=== PATIENT | male | born 1945 | race Hispanic/Latino ===

== ENCOUNTER → 2020-12-17 | Day surgery (SDC) | payer MEDICARE ==
[2020-12-13 09:22] LABS: BASOPHILS % 0.3 % (0.0-1.0); EOSINOPHILS # (AUTO) 0.1 (0.0-0.4); EOSINOPHILS % 2.2 % (0.0-6.0); HEMATOCRIT 36.2 % (38.2-49.6); LYMPHOCYTES # (AUTO) 1.6 (1.0-3.2); LYMPHOCYTES % 26.7 % (18.0-39.1); MEAN CORPUSCULAR HEMOGLOBIN 30.7 pg (28-32); MEAN CORPUSCULAR HGB CONC 33.1 g/dL (31-35); MEAN CORPUSCULAR VOLUME 92.6 fL (81-99); MONOCYTES # (AUTO) 0.5 (0.2-0.8); NEUTROPHILS # (AUTO) 3.7 (2.1-6.9); NEUTROPHILS % 62.6 % (38.7-80.0); PLATELET COUNT 237 x10e3/uL (140-360); RED BLOOD COUNT 3.91 x10e6/uL (4.3-5.7); RED CELL DISTRIBUTION WIDTH 13.2 % (11.7-14.4)
[2020-12-13 09:52] LABS: ALANINE AMINOTRANSFERASE 17 IU/L (0-55); ALBUMIN 3.6 g/dL (3.5-5.0); ALKALINE PHOSPHATASE 100 IU/L (40-150); ANION GAP 11.8 mmol/L (8-16); BLOOD UREA NITROGEN 10 mg/dL (7-26); BUN/CREATININE RATIO 13 (6-25); CARBON DIOXIDE 26 mmol/L (22-29); CHLORIDE 107 mmol/L (98-107); CREATININE, SERUM 0.77 mg/dL (0.72-1.25); EST GLOMERULAR FILTRATION RATE > 60 ML/MIN (60-); GLUCOSE 103 mg/dL (74-118); POTASSIUM 3.8 mmol/L (3.5-5.1); SODIUM 141 mmol/L (136-145)
[~2020-12-17] VITALS: Ht 175.3 cm; Wt 83.9 kg
[~2020-12-17] MED LIST: AMLODIPINE BESYL5 MG PO; ATORVASTATIN CA10 MG PO; ELIQUIS5 MG PO; FENTANYL CITRATE/PF 100MCG/2 ML INJ ONE; FLOMAX0.4 MG PO; HEPARIN SOD/SOD CHLORIDE 2,000 ML ONE; IOPAMIDOL 370 MG/ML 200 ML INFUS..BTL INJ ONE; LEVOFLOXACIN250 MG PO; LIDOCAINE HCL 2% LOCAL 20 ML VIAL ONE; LOSARTAN POTASS25 MG PO; METOPROLOL TART25 MG PO; MIDAZOLAM HCL 2 MG/2 ML VIAL ONE; SODIUM CHLORIDE 0.9% 1000ML 1,000 ML ONE; VERAPAMIL HCL 2.5 MG/ML 2 ML VIAL ONE
[2020-12-17 14:24] VITALS: BP 116/63
[2020-12-17 14:40] VITALS: BP 164/69
[2020-12-17 14:55] VITALS: BP 176/83
[2020-12-17 15:10] VITALS: BP 175/76
[2020-12-17 15:25] VITALS: BP 170/80
== END | disposition home or self-care (01) ==
LOC: CATH LAB 10:07
PROVIDERS: ATTEND Internal Medicine Interventional Cardiology
DX: I25.118 Atherosclerotic heart disease of native coronary artery with other forms of angina pectoris (principal); I10 Essential (primary) hypertension; E78.00 Pure hypercholesterolemia, unspecified; Z83.3 Family history of diabetes mellitus; Z82.49 Family history of ischemic heart disease and other diseases of the circulatory system; Z01.812 Encounter for preprocedural laboratory examination; Z20.822 Contact with and (suspected) exposure to COVID-19
CPT/HCPCS: 36415; 76937; 80053; 85025; 93458; C1769; C1887; J2001; J2250; J3010; J7030; Q9967; U0002; 99152

== ENCOUNTER 2021-01-22 14:50 | Observation (INO) | payer MEDICARE, OTHER ==
[~2021-01-22] VITALS: Ht 175.3 cm; Wt 83.9 kg
[~2021-01-22 14:50] MED LIST changes: -FENTANYL CITRATE/PF 100MCG/2 ML INJ ONE; -HEPARIN SOD/SOD CHLORIDE 2,000 ML ONE; -IOPAMIDOL 370 MG/ML 200 ML INFUS..BTL INJ ONE; -LIDOCAINE HCL 2% LOCAL 20 ML VIAL ONE; -MIDAZOLAM HCL 2 MG/2 ML VIAL ONE; -SODIUM CHLORIDE 0.9% 1000ML 1,000 ML ONE; -VERAPAMIL HCL 2.5 MG/ML 2 ML VIAL ONE
[2021-01-22 15:27] LABS: BASOPHILS % 0.5 % (0.0-1.0); EOSINOPHILS # (AUTO) 0.1 (0.0-0.4); EOSINOPHILS % 0.9 % (0.0-6.0); HEMATOCRIT 36.7 % (38.2-49.6); HEMOGLOBIN 12.5 g/dL (14.0-18.0); LYMPHOCYTES # (AUTO) 1.4 (1.0-3.2); LYMPHOCYTES % 25.6 % (18.0-39.1); MEAN CORPUSCULAR HEMOGLOBIN 31.1 pg (28-32); MEAN CORPUSCULAR HGB CONC 34.1 g/dL (31-35); MEAN CORPUSCULAR VOLUME 91.3 fL (81-99); MONOCYTES # (AUTO) 0.4 (0.2-0.8); NEUTROPHILS # (AUTO) 3.7 (2.1-6.9); NEUTROPHILS % 65.8 % (38.7-80.0); PLATELET COUNT 242 x10e3/uL (140-360); RED BLOOD COUNT 4.02 x10e6/uL (4.3-5.7); RED CELL DISTRIBUTION WIDTH 13.3 % (11.7-14.4)
[2021-01-22] MEDS ORDERED: GLUCAGON FOR INJ 1 MG VIAL IV ONE (15:30)
[2021-01-22 15:33] LABS: INR 1.32; PROTHROMBIN TIME 17.1 seconds (11.9-14.5)
[2021-01-22 15:34] LABS: PARTIAL THROMBOPLASTIN TIME 41.7 seconds (23.8-35.5)
[2021-01-22 15:35] LABS: CLARITY,URINE CLEAR (CLEAR); COLOR,URINE YELLOW (YELLOW); KETONES,URINE NEGATIVE (NEGATIVE); LEUKOCYTE ESTERASE ,URINE NEGATIVE (NEGATIVE); NITRITE,URINE NEGATIVE (NEGATIVE); PROTEIN,URINE DIPSTICK NEGATIVE (NEGATIVE); URINE UROBILINOGEN 2 mg/dL (0.2 - 1)
[2021-01-22 15:36] LABS: BACTERIA,URINE FEW /HPF; EPITHELIAL CELLS,URINE FEW /LPF; RBC,URINE 0-5 /HPF (0-5); WBC,URINE (MAN) 0-5 /HPF (0-5)
[2021-01-22 15:43] LABS: ALANINE AMINOTRANSFERASE 21 IU/L (0-55); ALBUMIN 3.7 g/dL (3.5-5.0); ALBUMIN/GLOBULIN RATIO 1.2 (0.8-2.0); ALKALINE PHOSPHATASE 92 IU/L (40-150); ANION GAP 7.9 mmol/L (8-16); BLOOD UREA NITROGEN 11 mg/dL (7-26); BUN/CREATININE RATIO 14 (6-25); CALCIUM 8.8 mg/dL (8.4-10.2); CARBON DIOXIDE 26 mmol/L (22-29); CHLORIDE 108 mmol/L (98-107); CREATINE KINASE 187 IU/L (30-200); CREATININE, SERUM 0.76 mg/dL (0.72-1.25); EST GLOMERULAR FILTRATION RATE > 60 ML/MIN (60-); GLUCOSE 107 mg/dL (74-118); POTASSIUM 3.9 mmol/L (3.5-5.1); SODIUM 138 mmol/L (136-145)
[2021-01-22] MEDS ORDERED: ONDANSETRON HCL INJ 2MG/ML 2ML 2 MG/ML VIAL IV STA (17:04)
[2021-01-22] MEDS ORDERED: MORPHINE SULFATE INJ 4 MG/ML INJ 1ML IV PRN (17:15)
[2021-01-22] MEDS ORDERED: MORPHINE SULFATE INJ 2 MG/ML SYR IV PRN (17:15)
[2021-01-22] MEDS ORDERED: ONDANSETRON HCL INJ 2MG/ML 2ML 2 MG/ML VIAL IV PRN (17:15)
[2021-01-22] MEDS ORDERED: ASPIRIN 81 MG CHEW TAB PO ONE (17:15)
[2021-01-22] MEDS ORDERED: ONDANSETRON HCL INJ 2MG/ML 2ML 2 MG/ML VIAL ONE (17:15)
[2021-01-22 18:38] VITALS: BP 198/65
[2021-01-22 18:39] VITALS: BP 198/65
[2021-01-22 18:43] VITALS: BP 198/65
[2021-01-22] MEDS ORDERED: ACETAMINOPHEN 325 MG TAB PO PRN (19:30)
[2021-01-22] MEDS ORDERED: MAGNESIUM/ALUMINUM/SIMETHICONE 30 ML UDC PO PRN (19:30)
[2021-01-22 20:00] VITALS: BP 171/61
[2021-01-22] MEDS: HYDRALAZINE HCL 20 MG/ML VIAL IV PRN (20:11)
[2021-01-23] VITALS (7 sets, daily range): BP systolic 90–178; BP diastolic 53–71
[2021-01-23] MEDS: HYDRALAZINE HCL 20 MG/ML VIAL IV PRN (01:11)
[2021-01-23 01:37] LABS: CREATINE KINASE MB 0.9 ng/mL (0-5.0)
[2021-01-23 08:29] LABS: BASOPHILS % 0.3 % (0.0-1.0); EOSINOPHILS # (AUTO) 0.1 (0.0-0.4); EOSINOPHILS % 0.8 % (0.0-6.0); HEMOGLOBIN 12.2 g/dL (14.0-18.0); LYMPHOCYTES # (AUTO) 1.9 (1.0-3.2); LYMPHOCYTES % 26.1 % (18.0-39.1); MEAN CORPUSCULAR HEMOGLOBIN 30.9 pg (28-32); MEAN CORPUSCULAR HGB CONC 33.9 g/dL (31-35); MEAN CORPUSCULAR VOLUME 91.1 fL (81-99); MONOCYTES # (AUTO) 0.6 (0.2-0.8); NEUTROPHILS # (AUTO) 4.6 (2.1-6.9); NEUTROPHILS % 64.5 % (38.7-80.0); PLATELET COUNT 247 x10e3/uL (140-360); RED BLOOD COUNT 3.95 x10e6/uL (4.3-5.7); RED CELL DISTRIBUTION WIDTH 13.2 % (11.7-14.4)
[2021-01-23 08:59] LABS: ALANINE AMINOTRANSFERASE 23 IU/L (0-55); ALBUMIN 3.3 g/dL (3.5-5.0); ALBUMIN/GLOBULIN RATIO 1.1 (0.8-2.0); ALKALINE PHOSPHATASE 112 IU/L (40-150); ANION GAP 9.7 mmol/L (8-16); BLOOD UREA NITROGEN 12 mg/dL (7-26); BUN/CREATININE RATIO 16 (6-25); CALCIUM 8.7 mg/dL (8.4-10.2); CARBON DIOXIDE 26 mmol/L (22-29); CHLORIDE 109 mmol/L (98-107); CREATININE, SERUM 0.73 mg/dL (0.72-1.25); EST GLOMERULAR FILTRATION RATE > 60 ML/MIN (60-); GLUCOSE 86 mg/dL (74-118); POTASSIUM 3.7 mmol/L (3.5-5.1); SODIUM 141 mmol/L (136-145)
[2021-01-23 09:20] LABS: CREATINE KINASE MB 0.9 ng/mL (0-5.0)
[2021-01-23] MEDS: LOSARTAN POTASSIUM 25 MG TAB PO SCH (09:54)
[2021-01-23] MEDS: APIXABAN 5 MG TABLET PO SCH ×2 (09:54→17:35)
[2021-01-23] MEDS: ISOSORBIDE MONONITRATE 30 MG TAB CR PO SCH (09:55)
[2021-01-23] MEDS: ATORVASTATIN 10 MG TAB PO SCH (09:55)
[2021-01-23] MEDS: METOPROLOL TARTRATE 25 MG TAB PO SCH ×2 (09:55→16:10)
[2021-01-23] MEDS: TAMSULOSIN HCL 0.4 MG CAP PO SCH (09:55)
[2021-01-23] MEDS: AMLODIPINE BESYLATE 5 MG TAB PO SCH (09:55)
[2021-01-24] VITALS: BP 125/57
[2021-01-24 04:00] VITALS: BP 119/61
[2021-01-24] MEDS ORDERED: ISOSORBIDE MONO30 MG PO (06:11)
[2021-01-24] MEDS ORDERED: [UNRECOGNIZED DRUG - OTHER] (06:11)
[2021-01-24 08:00] VITALS: BP 120/77
[2021-01-24 08:03] VITALS: BP 120/77
[2021-01-24] MEDS: ISOSORBIDE MONONITRATE 30 MG TAB CR PO SCH ×2 (08:05→09:21)
[2021-01-24] MEDS: APIXABAN 5 MG TABLET PO SCH (09:21)
[2021-01-24] MEDS: METOPROLOL TARTRATE 25 MG TAB PO SCH (09:21)
[2021-01-24] MEDS: ATORVASTATIN 10 MG TAB PO SCH (09:21)
[2021-01-24] MEDS: TAMSULOSIN HCL 0.4 MG CAP PO SCH (09:21)
[2021-01-24] MEDS: AMLODIPINE BESYLATE 5 MG TAB PO SCH (09:21)
[2021-01-24] MEDS: LOSARTAN POTASSIUM 25 MG TAB PO SCH (09:21)
== END 2021-01-24 11:30 | disposition home or self-care (01) ==
LOC: ER 15:15 → ERHOLD 17:10 → IMCU 18:13
PROVIDERS: ADMIT Internal Medicine; ATTEND Internal Medicine
DX: R07.89 Other chest pain (principal); I16.1 Hypertensive emergency; I25.10 Atherosclerotic heart disease of native coronary artery without angina pectoris; I44.0 Atrioventricular block, first degree; E78.5 Hyperlipidemia, unspecified; K21.9 Gastro-esophageal reflux disease without esophagitis; N40.0 Benign prostatic hyperplasia without lower urinary tract symptoms; D64.9 Anemia, unspecified; I85.00 Esophageal varices without bleeding; Z20.822 Contact with and (suspected) exposure to COVID-19
CPT/HCPCS: 36415 ×2; 71045; 80053 ×2; 81001; 82550 ×2; 82553 ×2; 82948; 83880; 84484 ×2; 85025 ×2; 85610; 85730; 93005; 93306; 99284; G0378 ×3; J0360 ×2; J1610; J2405; U0002

== ENCOUNTER 2021-01-24 23:50 | Emergency (ER) | payer MEDICARE, OTHER ==
[~2021-01-24] VITALS: Ht 327.7 cm; Wt 83.9 kg
[~2021-01-24 23:50] MED LIST changes: +ISOSORBIDE MONO30 MG PO; +[UNRECOGNIZED DRUG - OTHER]
[2021-01-25 00:46] LABS: BASOPHILS # (AUTO) 0.1 (0.0-0.1); BASOPHILS % 0.5 % (0.0-1.0); EOSINOPHILS # (AUTO) 0.1 (0.0-0.4); HEMATOCRIT 37.3 % (38.2-49.6); HEMOGLOBIN 12.5 g/dL (14.0-18.0); LYMPHOCYTES # (AUTO) 2.4 (1.0-3.2); LYMPHOCYTES % 24.8 % (18.0-39.1); MEAN CORPUSCULAR HGB CONC 33.5 g/dL (31-35); MEAN CORPUSCULAR VOLUME 92.6 fL (81-99); MONOCYTES # (AUTO) 0.8 (0.2-0.8); MONOCYTES % 8.6 % (4.4-11.3); NEUTROPHILS # (AUTO) 6.2 (2.1-6.9); NEUTROPHILS % 64.9 % (38.7-80.0); PLATELET COUNT 243 x10e3/uL (140-360); RED BLOOD COUNT 4.03 x10e6/uL (4.3-5.7); RED CELL DISTRIBUTION WIDTH 13.4 % (11.7-14.4)
[2021-01-25 01:04] LABS: ALANINE AMINOTRANSFERASE 24 IU/L (0-55); ALBUMIN 3.8 g/dL (3.5-5.0); ALBUMIN/GLOBULIN RATIO 1.2 (0.8-2.0); ALKALINE PHOSPHATASE 112 IU/L (40-150); ANION GAP 12.9 mmol/L (8-16); BLOOD UREA NITROGEN 24 mg/dL (7-26); BUN/CREATININE RATIO 27 (6-25); CALCIUM 8.8 mg/dL (8.4-10.2); CARBON DIOXIDE 22 mmol/L (22-29); CHLORIDE 109 mmol/L (98-107); CREATININE, SERUM 0.88 mg/dL (0.72-1.25); EST GLOMERULAR FILTRATION RATE > 60 ML/MIN (60-); GLUCOSE 106 mg/dL (74-118); POTASSIUM 3.9 mmol/L (3.5-5.1); SODIUM 140 mmol/L (136-145)
[2021-01-25 02:10] VITALS: BP 189/81
== END 2021-01-25 02:12 | disposition home or self-care (01) ==
LOC: ER 01-25 00:04
DX: R06.00 Dyspnea, unspecified (principal); R42 Dizziness and giddiness; I10 Essential (primary) hypertension; E78.5 Hyperlipidemia, unspecified
CPT/HCPCS: 36415; 70450; 71045; 80053; 83880; 84484; 85025; 93005; 99284

== ENCOUNTER 2022-05-11 14:11 | Observation (INO) | payer MEDICARE, OTHER ==
[~2022-05-11] VITALS: Ht 172.7 cm; Wt 83.9 kg
[2022-05-11] MEDS ORDERED: ASPIRIN 81 MG CHEW TAB PO ONE (15:00)
[2022-05-11] MEDS ORDERED: SODIUM CHLORIDE 0.9% 1000ML 1,000 ML IV ONE (15:00)
[2022-05-11 15:07] LABS: BASOPHILS % 0.1 % (0.0-1.0); EOSINOPHILS % 0.2 % (0.0-6.0); HEMATOCRIT 32.5 % (38.2-49.6); HEMOGLOBIN 11.1 g/dL (14.0-18.0); LYMPHOCYTES # (AUTO) 1.4 (1.0-3.2); LYMPHOCYTES % 15.1 % (18.0-39.1); MEAN CORPUSCULAR HEMOGLOBIN 31.1 pg (28-32); MEAN CORPUSCULAR HGB CONC 34.2 g/dL (31-35); MONOCYTES # (AUTO) 0.6 (0.2-0.8); MONOCYTES % 6.9 % (4.4-11.3); NEUTROPHILS # (AUTO) 7.1 (2.1-6.9); NEUTROPHILS % 77.2 % (38.7-80.0); PLATELET COUNT 433 x10e3/uL (140-360); RED BLOOD COUNT 3.57 x10e6/uL (4.3-5.7); RED CELL DISTRIBUTION WIDTH 13.1 % (11.7-14.4)
[2022-05-11 15:20] LABS: INR 1.38; PARTIAL THROMBOPLASTIN TIME 34.2 seconds (23.8-35.5); PROTHROMBIN TIME 18.1 seconds (11.9-14.5)
[2022-05-11 15:27] LABS: ALBUMIN 3.4 g/dL (3.5-5.0); ALBUMIN/GLOBULIN RATIO 0.8 (0.8-2.0); ANION GAP 13.7 mmol/L (8-16); CALCIUM 8.4 mg/dL (8.4-10.2); CREATININE, SERUM 1.14 mg/dL (0.72-1.25)
[2022-05-11 15:29] LABS: POTASSIUM 2.7 mmol/L (3.5-5.1)
[2022-05-11 15:33] LABS: CREATINE KINASE MB 1.4 ng/mL (0-5.0)
[2022-05-11] MEDS ORDERED: POTASSIUM CHLORIDE 20 MEQ TAB CR PO STA (16:51)
[2022-05-11] MEDS ORDERED: KCL 20MEQ/.9 SOD CHL 1,000 ML IV ONE (17:30)
[2022-05-11] MEDS ORDERED: MAGNESIUM SULFATE 2GM/50ML 50 ML IV ONE (17:30)
[2022-05-11] MEDS ORDERED: ONDANSETRON HCL INJ 2MG/ML 2ML 2 MG/ML VIAL IV PRN (17:45)
[2022-05-11] MEDS ORDERED: Morphine 2mg Syringe 2 MG/ML SYR IV PRN (17:45)
[2022-05-11] MEDS ORDERED: NITROGLYCERIN 0.4 MG SUBL SL PRN (17:45)
[2022-05-11] MEDS: FAMOTIDINE 20 MG/2 ML VIAL IV SCH (18:09)
[2022-05-11 19:27] LABS: CREATINE KINASE MB 1.1 ng/mL (0-5.0)
[2022-05-11] MEDS ORDERED: POTASSIUM CHLORIDE 20 MEQ TAB CR PO ONE (21:00)
[2022-05-11 21:27] LABS: CLARITY,URINE CLEAR (CLEAR); COLOR,URINE STRAW (YELLOW); KETONES,URINE NEGATIVE (NEGATIVE); LEUKOCYTE ESTERASE ,URINE NEGATIVE (NEGATIVE); NITRITE,URINE NEGATIVE (NEGATIVE); PROTEIN,URINE DIPSTICK NEGATIVE (NEGATIVE); URINE UROBILINOGEN 1 mg/dL (0.2 - 1)
[2022-05-11 21:37] LABS: AMORPHOUS SEDIMENT,URINE FEW (FEW)
[2022-05-11 22:00] VITALS: BP 162/67
[2022-05-12] VITALS (7 sets, daily range): BP systolic 106–154; BP diastolic 50–70
[2022-05-12] MEDS: FAMOTIDINE 20 MG/2 ML VIAL IV SCH ×2 (05:14→16:44)
[2022-05-12 06:12] LABS: BASOPHILS % 0.2 % (0.0-1.0); EOSINOPHILS % 0.2 % (0.0-6.0); HEMATOCRIT 31.1 % (38.2-49.6); HEMOGLOBIN 10.8 g/dL (14.0-18.0); LYMPHOCYTES # (AUTO) 1.3 (1.0-3.2); LYMPHOCYTES % 16.3 % (18.0-39.1); MEAN CORPUSCULAR HEMOGLOBIN 31.5 pg (28-32); MEAN CORPUSCULAR HGB CONC 34.7 g/dL (31-35); MEAN CORPUSCULAR VOLUME 90.7 fL (81-99); MONOCYTES # (AUTO) 0.8 (0.2-0.8); MONOCYTES % 10.4 % (4.4-11.3); NEUTROPHILS # (AUTO) 5.8 (2.1-6.9); NEUTROPHILS % 72.3 % (38.7-80.0); PLATELET COUNT 349 x10e3/uL (140-360); RED BLOOD COUNT 3.43 x10e6/uL (4.3-5.7); RED CELL DISTRIBUTION WIDTH 13.2 % (11.7-14.4)
[2022-05-12 07:01] LABS: ALBUMIN/GLOBULIN RATIO 0.8 (0.8-2.0); ANION GAP 11.4 mmol/L (8-16); CHOL/HDL RATIO 3.8 (3.9-4.7); CREATININE, SERUM 0.86 mg/dL (0.72-1.25); POTASSIUM 3.4 mmol/L (3.5-5.1)
[2022-05-12] MEDS: LOSARTAN POTASSIUM 25 MG TAB PO SCH (08:40)
[2022-05-12] MEDS: APIXABAN 5 MG TABLET PO SCH ×2 (08:40→16:39)
[2022-05-12] MEDS: TAMSULOSIN HCL 0.4 MG CAP PO SCH (08:40)
[2022-05-12] MEDS: ISOSORBIDE MONONITRATE 30 MG TAB CR PO SCH (08:41)
[2022-05-12] MEDS: ATORVASTATIN 10 MG TAB PO SCH (08:41)
[2022-05-12] MEDS: AMLODIPINE BESYLATE 5 MG TAB PO SCH (08:42)
[2022-05-12] MEDS: METOPROLOL TARTRATE 25 MG TAB PO SCH ×2 (08:42→16:39)
[2022-05-12] MEDS: ASPIRIN 81 MG ENTERIC COATED PO SCH (08:43)
[2022-05-12] MEDS ORDERED: ACETAMINOPHEN 325 MG TAB PO PRN (20:15)
[2022-05-13] VITALS: BP 108/59
[2022-05-13 04:00] VITALS: BP 165/65
[2022-05-13] MEDS: FAMOTIDINE 20 MG/2 ML VIAL IV SCH (05:42)
[2022-05-13 08:03] VITALS: BP 142/82
[2022-05-13 09:01] VITALS: BP 142/82
[2022-05-13] MEDS: ASPIRIN 81 MG ENTERIC COATED PO SCH (09:13)
[2022-05-13] MEDS: ISOSORBIDE MONONITRATE 30 MG TAB CR PO SCH (09:14)
[2022-05-13] MEDS: APIXABAN 5 MG TABLET PO SCH (09:14)
[2022-05-13] MEDS: LOSARTAN POTASSIUM 25 MG TAB PO SCH (09:14)
[2022-05-13] MEDS: ATORVASTATIN 10 MG TAB PO SCH (09:14)
[2022-05-13] MEDS: TAMSULOSIN HCL 0.4 MG CAP PO SCH (09:14)
[2022-05-13] MEDS: AMLODIPINE BESYLATE 5 MG TAB PO SCH (09:15)
[2022-05-13] MEDS: METOPROLOL TARTRATE 25 MG TAB PO SCH (09:15)
[2022-05-13 11:43] VITALS: BP 138/69
[2022-05-13] MEDS ORDERED: ASPIRIN EC81 MG PO (12:47)
== END 2022-05-13 13:09 | disposition home or self-care (01) ==
LOC: ER 14:40 → INTOOBSV 17:42 → ERHOLD 17:42 → MED/SURG3 21:26
PROVIDERS: ADMIT Internal Medicine; ATTEND Internal Medicine
DX: R07.9 Chest pain, unspecified (principal); I25.10 Atherosclerotic heart disease of native coronary artery without angina pectoris; I10 Essential (primary) hypertension; E78.5 Hyperlipidemia, unspecified; I49.3 Ventricular premature depolarization; I48.0 Paroxysmal atrial fibrillation; I44.1 Atrioventricular block, second degree; Z79.82 Long term (current) use of aspirin; Z90.49 Acquired absence of other specified parts of digestive tract; Z20.822 Contact with and (suspected) exposure to COVID-19; D64.9 Anemia, unspecified; E87.6 Hypokalemia; K21.9 Gastro-esophageal reflux disease without esophagitis
CPT/HCPCS: 0223U; 36415 ×2; 70450; 71045; 80053 ×2; 80061; 81001; 82550 ×2; 82553 ×2; 83735; 83880; 84484 ×2; 85025 ×2; 85610; 85730; 93005; 93306; 94799 ×2; 99284; G0378 ×3; J3475; J7030

== ENCOUNTER 2022-06-21 11:01 | Emergency (ER) | payer MEDICARE, OTHER ==
[~2022-06-21] VITALS: Ht 172.7 cm; Wt 83.9 kg
[~2022-06-21 11:01] MED LIST changes: +ASPIRIN EC81 MG PO
[2022-06-21] MEDS ORDERED: SODIUM CHLORIDE 0.9% 1000ML 1,000 ML IV ONE (11:45)
[2022-06-21 12:37] LABS: BASOPHILS % 0.1 % (0.0-1.0); HEMATOCRIT 25.4 % (38.2-49.6); HEMOGLOBIN 8.5 g/dL (14.0-18.0); LYMPHOCYTES # (AUTO) 1.1 (1.0-3.2); LYMPHOCYTES % 13.4 % (18.0-39.1); MEAN CORPUSCULAR HEMOGLOBIN 30.7 pg (28-32); MEAN CORPUSCULAR HGB CONC 33.5 g/dL (31-35); MEAN CORPUSCULAR VOLUME 91.7 fL (81-99); MONOCYTES # (AUTO) 0.8 (0.2-0.8); MONOCYTES % 9.9 % (4.4-11.3); NEUTROPHILS # (AUTO) 6.4 (2.1-6.9); NEUTROPHILS % 76.1 % (38.7-80.0); PLATELET COUNT 292 x10e3/uL (140-360); RED BLOOD COUNT 2.77 x10e6/uL (4.3-5.7); RED CELL DISTRIBUTION WIDTH 14.4 % (11.7-14.4)
[2022-06-21 12:38] LABS: CLARITY,URINE CLEAR (CLEAR); COLOR,URINE YELLOW (YELLOW); KETONES,URINE NEGATIVE (NEGATIVE); LEUKOCYTE ESTERASE ,URINE NEGATIVE (NEGATIVE); NITRITE,URINE NEGATIVE (NEGATIVE); PROTEIN,URINE DIPSTICK NEGATIVE (NEGATIVE); URINE UROBILINOGEN 1 mg/dL (0.2 - 1)
[2022-06-21 12:55] LABS: ALBUMIN 3.2 g/dL (3.5-5.0); ALBUMIN/GLOBULIN RATIO 0.9 (0.8-2.0); ANION GAP 15.4 mmol/L (8-16); BACTERIA,URINE RARE /HPF; CALCIUM 8.6 mg/dL (8.4-10.2); CREATININE, SERUM 0.81 mg/dL (0.72-1.25); POTASSIUM 3.4 mmol/L (3.5-5.1); WBC,URINE (MAN) 0-5 /HPF (0-5)
[2022-06-21] MEDS ORDERED: FLOMAX0.4 MG PO (15:06)
== END 2022-06-21 16:15 | disposition home or self-care (01) ==
LOC: ER 11:39
DX: R33.9 Retention of urine, unspecified (principal); N40.1 Benign prostatic hyperplasia with lower urinary tract symptoms; I10 Essential (primary) hypertension; E78.5 Hyperlipidemia, unspecified
CPT/HCPCS: 36415; 51702; 80053; 81001; 85025; 99284; J7030; 51700

== ENCOUNTER 2022-08-05 18:02 | Inpatient (IN) | payer MEDICARE, OTHER ==
[~2022-08-05] VITALS: Ht 152.4 cm; Wt 74.4 kg
[2022-08-05 18:45] LABS: BASOPHILS % 0.2 % (0.0-1.0); HEMATOCRIT 31.7 % (38.2-49.6); LYMPHOCYTES # (AUTO) 1.2 (1.0-3.2); MEAN CORPUSCULAR HEMOGLOBIN 27.8 pg (28-32); MEAN CORPUSCULAR HGB CONC 31.5 g/dL (31-35); MEAN CORPUSCULAR VOLUME 88.1 fL (81-99); MONOCYTES # (AUTO) 0.5 (0.2-0.8); MONOCYTES % 4.1 % (4.4-11.3); NEUTROPHILS # (AUTO) 11.1 (2.1-6.9); NEUTROPHILS % 85.5 % (38.7-80.0); PLATELET COUNT 455 x10e3/uL (140-360); RED CELL DISTRIBUTION WIDTH 16.3 % (11.7-14.4)
[2022-08-05 18:51] LABS: INR 1.22; PROTHROMBIN TIME 16.5 seconds (11.9-14.5)
[2022-08-05 18:52] LABS: PARTIAL THROMBOPLASTIN TIME 35.7 seconds (23.8-35.5)
[2022-08-05 19:00] LABS: ALANINE AMINOTRANSFERASE 68 IU/L (0-55); ALBUMIN 2.8 g/dL (3.5-5.0); ALBUMIN/GLOBULIN RATIO 0.6 (0.8-2.0); ALKALINE PHOSPHATASE 106 IU/L (40-150); ANION GAP 20.1 mmol/L (8-16); BLOOD UREA NITROGEN 44 mg/dL (7-26); BUN/CREATININE RATIO 35 (6-25); CALCIUM 9.1 mg/dL (8.4-10.2); CARBON DIOXIDE 18 mmol/L (22-29); CHLORIDE 98 mmol/L (98-107); CREATININE, SERUM 1.26 mg/dL (0.72-1.25); GLUCOSE 113 mg/dL (74-118); POTASSIUM 3.1 mmol/L (3.5-5.1); SODIUM 133 mmol/L (136-145)
[2022-08-05] MEDS ORDERED: SODIUM CHLORIDE 0.9% 1000ML 1,000 ML IV ONE (19:00)
[2022-08-05 19:38] LABS: CLARITY,URINE SL CLOUDY (CLEAR); COLOR,URINE STRAW (YELLOW); KETONES,URINE NEGATIVE (NEGATIVE); LEUKOCYTE ESTERASE ,URINE LARGE (NEGATIVE); NITRITE,URINE NEGATIVE (NEGATIVE); PROTEIN,URINE DIPSTICK TRACE (NEGATIVE); URINE UROBILINOGEN 0.2 mg/dL (0.2 - 1)
[2022-08-05 19:55] LABS: AMORPHOUS SEDIMENT,URINE MODERATE (FEW); BACTERIA,URINE MODERATE /HPF; WBC,URINE (MAN) 21-50 /HPF (0-5)
[2022-08-05] MEDS ORDERED: ONDANSETRON HCL INJ 2MG/ML 2ML 2 MG/ML VIAL IV PRN (20:15)
[2022-08-05] MEDS ORDERED: SODIUM CHLORIDE FLUSH 10 ML SYR INJ PRN (20:15)
[2022-08-05 20:30] VITALS: BP 118/71
[2022-08-05 23:00] VITALS: BP 118/71
[2022-08-06] VITALS (9 sets, daily range): BP systolic 132–158; BP diastolic 54–86
[2022-08-06] MEDS ORDERED: HYDRALAZINE HCL 20 MG/ML VIAL IV PRN (00:15)
[2022-08-06] MEDS: SODIUM CHLORIDE 0.9% 1000ML 1,000 ML IV SCH ×2 (01:35→13:48)
[2022-08-06 06:18] LABS: BASOPHILS % 0.2 % (0.0-1.0); EOSINOPHILS % 0.3 % (0.0-6.0); HEMATOCRIT 22.3 % (38.2-49.6); HEMOGLOBIN 7.6 g/dL (14.0-18.0); LYMPHOCYTES # (AUTO) 1.2 (1.0-3.2); LYMPHOCYTES % 11.8 % (18.0-39.1); MEAN CORPUSCULAR HEMOGLOBIN 28.4 pg (28-32); MEAN CORPUSCULAR HGB CONC 34.1 g/dL (31-35); MEAN CORPUSCULAR VOLUME 83.2 fL (81-99); MONOCYTES # (AUTO) 0.7 (0.2-0.8); MONOCYTES % 6.5 % (4.4-11.3); NEUTROPHILS # (AUTO) 8.3 (2.1-6.9); NEUTROPHILS % 79.9 % (38.7-80.0); PLATELET COUNT 450 x10e3/uL (140-360); RED BLOOD COUNT 2.68 x10e6/uL (4.3-5.7); RED CELL DISTRIBUTION WIDTH 16.3 % (11.7-14.4)
[2022-08-06 06:54] LABS: ANION GAP 14.6 mmol/L (8-16); CREATININE, SERUM 1.39 mg/dL (0.72-1.25)
[2022-08-06 06:58] LABS: POTASSIUM 2.6 mmol/L (3.5-5.1)
[2022-08-06] MEDS ORDERED: POTASSIUM CHLORIDE 20 MEQ TAB CR PO STA (07:04)
[2022-08-06] MEDS ORDERED: POTASSIUM CHLORIDE 20 MEQ TAB CR PO SCH (09:00)
[2022-08-06] MEDS: METOPROLOL TARTRATE 25 MG TAB PO SCH ×2 (09:19→17:07)
[2022-08-06] MEDS: APIXABAN 5 MG TABLET PO SCH ×2 (09:19→16:59)
[2022-08-06] MEDS ORDERED: ONDANSETRON HCL 4 MG ORAL DISINTEGRATING TAB PO PRN ×2 (11:45)
[2022-08-06] MEDS: TAMSULOSIN HCL 0.4 MG CAP PO SCH (20:24)
[2022-08-07] VITALS (8 sets, daily range): BP systolic 128–176; BP diastolic 49–85
[2022-08-07] MEDS: SODIUM CHLORIDE 0.9% 1000ML 1,000 ML IV SCH ×2 (03:33→16:46)
[2022-08-07] MEDS: METOPROLOL TARTRATE 25 MG TAB PO SCH (08:16)
[2022-08-07] MEDS: APIXABAN 5 MG TABLET PO SCH (08:16)
[2022-08-07 10:03] LABS: BASOPHILS % 0.2 % (0.0-1.0); EOSINOPHILS % 0.4 % (0.0-6.0); HEMATOCRIT 23.2 % (38.2-49.6); HEMOGLOBIN 7.3 g/dL (14.0-18.0); MEAN CORPUSCULAR HEMOGLOBIN 27.8 pg (28-32); MEAN CORPUSCULAR HGB CONC 31.5 g/dL (31-35); MEAN CORPUSCULAR VOLUME 88.2 fL (81-99); MONOCYTES # (AUTO) 0.4 (0.2-0.8); MONOCYTES % 4.2 % (4.4-11.3); NEUTROPHILS # (AUTO) 7.4 (2.1-6.9); NEUTROPHILS % 83.4 % (38.7-80.0); PLATELET COUNT 415 x10e3/uL (140-360); RED BLOOD COUNT 2.63 x10e6/uL (4.3-5.7); RED CELL DISTRIBUTION WIDTH 16.7 % (11.7-14.4)
[2022-08-07 10:08] LABS: ANION GAP 11.3 mmol/L (8-16); CALCIUM 7.8 mg/dL (8.4-10.2); CREATININE, SERUM 1.5 mg/dL (0.72-1.25); POTASSIUM 3.3 mmol/L (3.5-5.1)
[2022-08-07] MEDS ORDERED: POTASSIUM CHLORIDE 20 MEQ TAB CR PO STA (10:26)
[2022-08-07] MEDS: PANTOPRAZOLE SOD 40 MG TABEC PO SCH (12:07)
[2022-08-07] MEDS: AMLODIPINE BESYLATE 5 MG TAB PO SCH (12:07)
[2022-08-07] MEDS: DOCUSATE SODIUM LIQD 100 MG/10 ML UDC NG SCH (16:45)
[2022-08-07] MEDS: TAMSULOSIN HCL 0.4 MG CAP PO SCH (21:37)
[2022-08-08] VITALS (8 sets, daily range): BP systolic 137–180; BP diastolic 65–91
[2022-08-08] MEDS: SODIUM CHLORIDE 0.9% 1000ML 1,000 ML IV SCH ×2 (06:23→17:58)
[2022-08-08 06:35] LABS: BASOPHILS % 0.2 % (0.0-1.0); EOSINOPHILS # (AUTO) 0.1 (0.0-0.4); EOSINOPHILS % 0.5 % (0.0-6.0); HEMATOCRIT 22.5 % (38.2-49.6); HEMOGLOBIN 7.3 g/dL (14.0-18.0); MEAN CORPUSCULAR HEMOGLOBIN 28.4 pg (28-32); MEAN CORPUSCULAR HGB CONC 32.4 g/dL (31-35); MEAN CORPUSCULAR VOLUME 87.5 fL (81-99); MONOCYTES # (AUTO) 0.4 (0.2-0.8); MONOCYTES % 3.9 % (4.4-11.3); NEUTROPHILS # (AUTO) 8.9 (2.1-6.9); NEUTROPHILS % 84.6 % (38.7-80.0); PLATELET COUNT 470 x10e3/uL (140-360); RED BLOOD COUNT 2.57 x10e6/uL (4.3-5.7); RED CELL DISTRIBUTION WIDTH 16.8 % (11.7-14.4)
[2022-08-08 07:08] LABS: ANION GAP 12.4 mmol/L (8-16); CALCIUM 8.1 mg/dL (8.4-10.2); CREATININE, SERUM 1.1 mg/dL (0.72-1.25); POTASSIUM 3.4 mmol/L (3.5-5.1)
[2022-08-08] MEDS ORDERED: TAMSULOSIN HCL 0.4 MG CAP PO SCH (09:00)
[2022-08-08] MEDS: DOCUSATE SODIUM LIQD 100 MG/10 ML UDC NG SCH ×3 (09:33→16:55)
[2022-08-08] MEDS: PANTOPRAZOLE SOD 40 MG TABEC PO SCH (09:33)
[2022-08-08] MEDS: AMLODIPINE BESYLATE 5 MG TAB PO SCH (09:34)
[2022-08-08] MEDS: ISOSORBIDE MONONITRATE 30 MG TAB CR PO SCH (09:34)
[2022-08-08] MEDS: ASPIRIN 81 MG ENTERIC COATED PO SCH (09:34)
[2022-08-08] MEDS: ATORVASTATIN 10 MG TAB PO SCH (09:34)
[2022-08-08] MEDS ORDERED: POTASSIUM CHLORIDE 20MEQ/100ML 100 ML IV ONE (13:00)
[2022-08-08 15:01] LABS: CREATININE,URINE RANDOM 35.33 mg/dL (63-166); SODIUM,URINE 73 mmol/L; TOTAL PROTEIN, URINE < 6.8 mg/dL (1-14)
[2022-08-08] MEDS: SODIUM BICARBONATE 650 MG TAB PO SCH (16:47)
[2022-08-08] MEDS ORDERED: APIXABAN 5 MG TABLET PO SCH (17:00)
[2022-08-08] MEDS: TAMSULOSIN HCL 0.4 MG CAP PO SCH (20:59)
[2022-08-09] VITALS (8 sets, daily range): BP systolic 149–182; BP diastolic 62–81
[2022-08-09 06:22] LABS: BASOPHILS % 0.2 % (0.0-1.0); EOSINOPHILS # (AUTO) 0.1 (0.0-0.4); EOSINOPHILS % 1.2 % (0.0-6.0); HEMATOCRIT 21.6 % (38.2-49.6); HEMOGLOBIN 7.1 g/dL (14.0-18.0); LYMPHOCYTES # (AUTO) 1.1 (1.0-3.2); LYMPHOCYTES % 18.6 % (18.0-39.1); MEAN CORPUSCULAR HEMOGLOBIN 28.1 pg (28-32); MEAN CORPUSCULAR HGB CONC 32.9 g/dL (31-35); MEAN CORPUSCULAR VOLUME 85.4 fL (81-99); MONOCYTES # (AUTO) 0.3 (0.2-0.8); MONOCYTES % 5.6 % (4.4-11.3); NEUTROPHILS # (AUTO) 4.4 (2.1-6.9); NEUTROPHILS % 73.4 % (38.7-80.0); PLATELET COUNT 400 x10e3/uL (140-360); RED BLOOD COUNT 2.53 x10e6/uL (4.3-5.7); RED CELL DISTRIBUTION WIDTH 16.8 % (11.7-14.4)
[2022-08-09 07:22] LABS: ANION GAP 12.3 mmol/L (8-16); CREATININE, SERUM 0.85 mg/dL (0.72-1.25); POTASSIUM 3.3 mmol/L (3.5-5.1)
[2022-08-09] MEDS: SODIUM CHLORIDE 0.9% 1000ML 1,000 ML IV SCH ×2 (08:15→20:13)
[2022-08-09] MEDS: DOCUSATE SODIUM LIQD 100 MG/10 ML UDC NG SCH ×2 (08:22→16:18)
[2022-08-09] MEDS: ASPIRIN 81 MG ENTERIC COATED PO SCH (08:23)
[2022-08-09] MEDS: SODIUM BICARBONATE 650 MG TAB PO SCH ×2 (08:23→16:17)
[2022-08-09] MEDS: ATORVASTATIN 10 MG TAB PO SCH (08:23)
[2022-08-09] MEDS: PANTOPRAZOLE SOD 40 MG TABEC PO SCH (08:23)
[2022-08-09] MEDS: ISOSORBIDE MONONITRATE 30 MG TAB CR PO SCH (08:33)
[2022-08-09] MEDS: AMLODIPINE BESYLATE 5 MG TAB PO SCH (08:33)
[2022-08-09] MEDS ORDERED: MAGNESIUM SULFATE 2GM/50ML 50 ML IV ONE (12:30)
[2022-08-09] MEDS ORDERED: POTASSIUM CHLORIDE 10MEQ EA PO NR (12:30)
[2022-08-09] MEDS: TAMSULOSIN HCL 0.4 MG CAP PO SCH (20:13)
[2022-08-10] VITALS (7 sets, daily range): BP systolic 114–175; BP diastolic 59–79
[2022-08-10 06:08] LABS: BASOPHILS % 0.7 % (0.0-1.0); EOSINOPHILS # (AUTO) 0.1 (0.0-0.4); EOSINOPHILS % 1.1 % (0.0-6.0); HEMATOCRIT 26.8 % (38.2-49.6); HEMOGLOBIN 8.3 g/dL (14.0-18.0); LYMPHOCYTES % 18.2 % (18.0-39.1); MEAN CORPUSCULAR HEMOGLOBIN 28.3 pg (28-32); MEAN CORPUSCULAR VOLUME 91.5 fL (81-99); MONOCYTES # (AUTO) 0.3 (0.2-0.8); MONOCYTES % 5.3 % (4.4-11.3); NEUTROPHILS # (AUTO) 4.2 (2.1-6.9); NEUTROPHILS % 74.2 % (38.7-80.0); PLATELET COUNT 418 x10e3/uL (140-360); RED BLOOD COUNT 2.93 x10e6/uL (4.3-5.7); RED CELL DISTRIBUTION WIDTH 17.3 % (11.7-14.4)
[2022-08-10 06:32] LABS: ANION GAP 14.1 mmol/L (8-16); CALCIUM 8.2 mg/dL (8.4-10.2); CREATININE, SERUM 0.73 mg/dL (0.72-1.25); POTASSIUM 3.1 mmol/L (3.5-5.1)
[2022-08-10 07:00] LABS: % IRON SATURATION 19 % (15-50); IRON 37 ug/dL (65-175); TOTAL IRON BINDING CAPACITY 200 ug/dL (261-478); TRANSFERRIN 143 mg/dL (174-364)
[2022-08-10] MEDS ORDERED: POTASSIUM CHLORIDE 10MEQ EA PO STA (07:27)
[2022-08-10] MEDS ORDERED: MAGNESIUM SULFATE 2GM/50ML 50 ML IV ONE ×2 (07:30→15:00)
[2022-08-10] MEDS: DOCUSATE SODIUM LIQD 100 MG/10 ML UDC NG SCH (08:53)
[2022-08-10] MEDS: ISOSORBIDE MONONITRATE 30 MG TAB CR PO SCH (08:54)
[2022-08-10] MEDS: AMLODIPINE BESYLATE 5 MG TAB PO SCH (08:54)
[2022-08-10] MEDS: PANTOPRAZOLE SOD 40 MG TABEC PO SCH (08:54)
[2022-08-10] MEDS: SODIUM BICARBONATE 650 MG TAB PO SCH ×2 (08:54→15:35)
[2022-08-10] MEDS: ASPIRIN 81 MG ENTERIC COATED PO SCH (08:54)
[2022-08-10] MEDS: ATORVASTATIN 10 MG TAB PO SCH (08:55)
[2022-08-10] MEDS: SODIUM CHLORIDE 0.9% 1000ML 1,000 ML IV SCH (10:55)
[2022-08-10 12:56] LABS: ANION GAP 14.5 mmol/L (8-16); CALCIUM 8.2 mg/dL (8.4-10.2); CREATININE, SERUM 0.76 mg/dL (0.72-1.25); MAGNESIUM 1.6 MG/DL (1.3-2.1); POTASSIUM 3.5 mmol/L (3.5-5.1)
[2022-08-10] MEDS ORDERED: POTASSIUM CHLORIDE 20 MEQ TAB CR PO ONE (15:00)
[2022-08-10] MEDS: DOCUSATE SODIUM 100 MG CAP PO SCH (15:35)
[2022-08-10] MEDS: TAMSULOSIN HCL 0.4 MG CAP PO SCH (21:27)
[2022-08-11] VITALS (7 sets, daily range): BP systolic 132–191; BP diastolic 52–90
[2022-08-11] MEDS: SODIUM CHLORIDE 0.9% 1000ML 1,000 ML IV SCH ×2 (00:15→13:15)
[2022-08-11 06:28] LABS: BASOPHILS % 0.4 % (0.0-1.0); EOSINOPHILS # (AUTO) 0.1 (0.0-0.4); EOSINOPHILS % 1.2 % (0.0-6.0); HEMOGLOBIN 7.5 g/dL (14.0-18.0); LYMPHOCYTES # (AUTO) 1.2 (1.0-3.2); LYMPHOCYTES % 21.3 % (18.0-39.1); MEAN CORPUSCULAR HEMOGLOBIN 29.8 pg (28-32); MEAN CORPUSCULAR HGB CONC 34.1 g/dL (31-35); MEAN CORPUSCULAR VOLUME 87.3 fL (81-99); MONOCYTES # (AUTO) 0.4 (0.2-0.8); MONOCYTES % 6.9 % (4.4-11.3); NEUTROPHILS % 69.7 % (38.7-80.0); PLATELET COUNT 456 x10e3/uL (140-360); RED BLOOD COUNT 2.52 x10e6/uL (4.3-5.7); RED CELL DISTRIBUTION WIDTH 17.7 % (11.7-14.4)
[2022-08-11 06:40] LABS: MAGNESIUM 1.6 MG/DL (1.3-2.1); PHOSPHORUS 2.5 MG/DL (2.3-4.7)
[2022-08-11 07:08] LABS: ANION GAP 12.6 mmol/L (8-16); CALCIUM 8.3 mg/dL (8.4-10.2); CREATININE, SERUM 0.66 mg/dL (0.72-1.25); POTASSIUM 3.6 mmol/L (3.5-5.1)
[2022-08-11] MEDS: AMLODIPINE BESYLATE 5 MG TAB PO SCH (08:19)
[2022-08-11] MEDS: PANTOPRAZOLE SOD 40 MG TABEC PO SCH (08:20)
[2022-08-11] MEDS: ASPIRIN 81 MG ENTERIC COATED PO SCH (08:20)
[2022-08-11] MEDS: ISOSORBIDE MONONITRATE 30 MG TAB CR PO SCH (08:20)
[2022-08-11] MEDS: DOCUSATE SODIUM 100 MG CAP PO SCH ×2 (08:20→17:44)
[2022-08-11] MEDS: ATORVASTATIN 10 MG TAB PO SCH (08:21)
[2022-08-11] MEDS: SODIUM BICARBONATE 650 MG TAB PO SCH ×2 (08:21→17:44)
[2022-08-11] MEDS ORDERED: SODIUM CHLORIDE 0.9% 250ML 250 ML IV ONE (14:00)
[2022-08-11] MEDS: LACTULOSE SYRUP 20 GM/30 ML UDC PO SCH (17:44)
[2022-08-11] MEDS ORDERED: MAGNESIUM SULFATE 2GM/50ML 50 ML IV ONE (20:00)
[2022-08-11] MEDS: TAMSULOSIN HCL 0.4 MG CAP PO SCH (20:25)
[2022-08-11] MEDS ORDERED: BISACODYL 10 MG SUPP PR ONE ×2 (23:15→23:30)
[2022-08-12] VITALS (8 sets, daily range): BP systolic 103–162; BP diastolic 40–78
[2022-08-12] MEDS ORDERED: BISACODYL 10 MG SUPP PR ONE ×2 (00:10→23:30)
[2022-08-12] MEDS ORDERED: MINERAL OIL 132 ML BTL PR ONE (00:45)
[2022-08-12] MEDS: SODIUM CHLORIDE 0.9% 1000ML 1,000 ML IV SCH ×2 (02:00→12:55)
[2022-08-12 06:14] LABS: HEMATOCRIT 26.2 % (38.2-49.6); HEMOGLOBIN 8.7 g/dL (14.0-18.0); MEAN CORPUSCULAR HEMOGLOBIN 28.6 pg (28-32); MEAN CORPUSCULAR HGB CONC 33.2 g/dL (31-35); MEAN CORPUSCULAR VOLUME 86.2 fL (81-99); PLATELET COUNT 322 x10e3/uL (140-360); RED BLOOD COUNT 3.04 x10e6/uL (4.3-5.7); RED CELL DISTRIBUTION WIDTH 17.9 % (11.7-14.4)
[2022-08-12 06:37] LABS: MAGNESIUM 1.7 MG/DL (1.3-2.1); POTASSIUM 3.3 mmol/L (3.5-5.1)
[2022-08-12 07:39] LABS: LYMPHOCYTES % (MANUAL) 14 % (19-48); MONOCYTES % (MANUAL) 1 % (3.4-9.0); NEUTROPHILS % (MANUAL) 85 % (40-74)
[2022-08-12 07:40] LABS: ANISOCYTOSIS SLIGHT; PLATELET ESTIMATE ADEQUATE; PLATELET MORPHOLOGY COMMENT NORMAL; RBC MORPHOLOGY COMMENT NORMAL
[2022-08-12] MEDS: DOCUSATE SODIUM 100 MG CAP PO SCH ×2 (08:47→16:32)
[2022-08-12] MEDS: ASPIRIN 81 MG ENTERIC COATED PO SCH (08:47)
[2022-08-12] MEDS: ATORVASTATIN 10 MG TAB PO SCH (08:48)
[2022-08-12] MEDS: SODIUM BICARBONATE 650 MG TAB PO SCH ×2 (08:48→16:31)
[2022-08-12] MEDS: PANTOPRAZOLE SOD 40 MG TABEC PO SCH (08:48)
[2022-08-12] MEDS: LACTULOSE SYRUP 20 GM/30 ML UDC PO SCH ×2 (08:50→16:32)
[2022-08-12] MEDS: AMLODIPINE BESYLATE 5 MG TAB PO SCH (08:53)
[2022-08-12] MEDS: ISOSORBIDE MONONITRATE 30 MG TAB CR PO SCH (08:53)
[2022-08-12] MEDS: LOSARTAN POTASSIUM 25 MG TAB PO SCH (08:54)
[2022-08-12] MEDS: IRON SUCROSE 100 MG in SODIUM CHLORIDE 0.9% 100 ML IV SCH (10:38)
[2022-08-12] MEDS ORDERED: POTASSIUM CHLORIDE 10MEQ EA PO ONE ×2 (15:00→16:45)
[2022-08-12] MEDS ORDERED: MAGNESIUM SULFATE 2GM/50ML 50 ML IV ONE (15:00)
[2022-08-12] MEDS ORDERED: POTASSIUM CHLORIDE 20MEQ/100ML 100 ML IV ONE (17:30)
[2022-08-12] MEDS: TAMSULOSIN HCL 0.4 MG CAP PO SCH (21:20)
[2022-08-12] MEDS ORDERED: PEG (High)/E-LYTE SOLN 4,000 ML BTL PO ONE (23:30)
[2022-08-13] VITALS (10 sets, daily range): BP systolic 103–175; BP diastolic 56–86
[2022-08-13] MEDS ORDERED: BISACODYL 10 MG SUPP PR ONE ×2 (00:30)
[2022-08-13 05:00] LABS: BASOPHILS % 0.3 % (0.0-1.0); EOSINOPHILS # (AUTO) 0.1 (0.0-0.4); HEMATOCRIT 27.9 % (38.2-49.6); HEMOGLOBIN 8.4 g/dL (14.0-18.0); LYMPHOCYTES # (AUTO) 1.2 (1.0-3.2); MEAN CORPUSCULAR HEMOGLOBIN 27.3 pg (28-32); MEAN CORPUSCULAR HGB CONC 30.1 g/dL (31-35); MEAN CORPUSCULAR VOLUME 90.6 fL (81-99); MONOCYTES # (AUTO) 0.4 (0.2-0.8); MONOCYTES % 5.8 % (4.4-11.3); NEUTROPHILS # (AUTO) 5.2 (2.1-6.9); NEUTROPHILS % 74.6 % (38.7-80.0); PLATELET COUNT 329 x10e3/uL (140-360); RED BLOOD COUNT 3.08 x10e6/uL (4.3-5.7); RED CELL DISTRIBUTION WIDTH 17.6 % (11.7-14.4)
[2022-08-13] MEDS: SODIUM CHLORIDE 0.9% 1000ML 1,000 ML IV SCH ×2 (05:12→13:29)
[2022-08-13 05:20] LABS: ANION GAP 11.9 mmol/L (8-16); CALCIUM 8.3 mg/dL (8.4-10.2); CREATININE, SERUM 0.71 mg/dL (0.72-1.25); MAGNESIUM 1.7 MG/DL (1.3-2.1); POTASSIUM 3.9 mmol/L (3.5-5.1)
[2022-08-13] MEDS: ASPIRIN 81 MG ENTERIC COATED PO SCH (09:31)
[2022-08-13] MEDS: DOCUSATE SODIUM 100 MG CAP PO SCH ×2 (09:31→16:46)
[2022-08-13] MEDS: PANTOPRAZOLE SOD 40 MG TABEC PO SCH (09:31)
[2022-08-13] MEDS: IRON SUCROSE 100 MG in SODIUM CHLORIDE 0.9% 100 ML IV SCH (09:31)
[2022-08-13] MEDS: LOSARTAN POTASSIUM 25 MG TAB PO SCH (09:32)
[2022-08-13] MEDS: SODIUM BICARBONATE 650 MG TAB PO SCH ×2 (09:32→16:46)
[2022-08-13] MEDS: ATORVASTATIN 10 MG TAB PO SCH (09:32)
[2022-08-13] MEDS: AMLODIPINE BESYLATE 5 MG TAB PO SCH (09:33)
[2022-08-13] MEDS: ISOSORBIDE MONONITRATE 30 MG TAB CR PO SCH (09:33)
[2022-08-13] MEDS: LACTULOSE SYRUP 20 GM/30 ML UDC PO SCH ×2 (10:01→16:47)
[2022-08-13] MEDS ORDERED: PEG (High)/E-LYTE SOLN 4,000 ML BTL PO ONE (14:00)
[2022-08-13] MEDS ORDERED: MAGNESIUM SULF 1GRAM/DEXTROSE 100 ML IV ONE (17:00)
[2022-08-13] MEDS: TAMSULOSIN HCL 0.4 MG CAP PO SCH (21:11)
[2022-08-13] MEDS ORDERED: BISACODYL 5 MG TAB EC PO ONE (23:00)
[2022-08-14] VITALS (8 sets, daily range): BP systolic 148–177; BP diastolic 58–70
[2022-08-14] MEDS: PANTOPRAZOLE SOD 40 MG TABEC PO SCH (07:30)
[2022-08-14] MEDS: SODIUM CHLORIDE 0.9% 1000ML 1,000 ML IV SCH (08:15)
[2022-08-14] MEDS: LACTULOSE SYRUP 20 GM/30 ML UDC PO SCH ×2 (08:33→16:47)
[2022-08-14] MEDS: DOCUSATE SODIUM 100 MG CAP PO SCH ×2 (08:33→16:47)
[2022-08-14] MEDS: SODIUM BICARBONATE 650 MG TAB PO SCH ×2 (08:34→16:47)
[2022-08-14] MEDS: ASPIRIN 81 MG ENTERIC COATED PO SCH (09:00)
[2022-08-14] MEDS: IRON SUCROSE 100 MG in SODIUM CHLORIDE 0.9% 100 ML IV SCH (09:38)
[2022-08-14] MEDS ORDERED: MIDAZOLAM HCL 2 MG/2 ML VIAL ONE (12:26)
[2022-08-14] MEDS ORDERED: FENTANYL CITRATE/PF 100MCG/2 ML INJ ONE (12:26)
[2022-08-14] MEDS ORDERED: HYOSCYAMINE SULFATE 0.5 MG/ML INJ ONE (13:12)
[2022-08-14] MEDS ORDERED: LIDOCAINE HCL 2% LOCAL INJ 5 ML SDV VIAL INJ ONE (13:12)
[2022-08-14] MEDS ORDERED: PROPOFOL IV EMULSION 10 MG/ML 20 ML VIAL ONE (13:12)
[2022-08-14 19:09] LABS: ALPHA 2 GLOBULIN URINE PEP 15.1 % (.)
[2022-08-14] MEDS: ISOSORBIDE MONONITRATE 30 MG TAB CR PO SCH (20:59)
[2022-08-14] MEDS: LOSARTAN POTASSIUM 25 MG TAB PO SCH (20:59)
[2022-08-14] MEDS: TAMSULOSIN HCL 0.4 MG CAP PO SCH (20:59)
[2022-08-14] MEDS ORDERED: ATORVASTATIN 10 MG TAB PO SCH (21:00)
[2022-08-14] MEDS: AMLODIPINE BESYLATE 10 MG TAB PO SCH (21:00)
[2022-08-15 01:09] VITALS: BP 150/67
[2022-08-15 06:15] VITALS: BP 121/46
[2022-08-15 07:30] VITALS: BP 106/47
[2022-08-15 08:38] VITALS: BP 106/47
[2022-08-15] MEDS: ISOSORBIDE MONONITRATE 30 MG TAB CR PO SCH (09:00)
[2022-08-15] MEDS: AMLODIPINE BESYLATE 10 MG TAB PO SCH (09:00)
[2022-08-15] MEDS: LOSARTAN POTASSIUM 25 MG TAB PO SCH (09:00)
[2022-08-15] MEDS: IRON SUCROSE 100 MG in SODIUM CHLORIDE 0.9% 100 ML IV SCH (10:02)
[2022-08-15] MEDS: DOCUSATE SODIUM 100 MG CAP PO SCH (10:02)
[2022-08-15] MEDS: PANTOPRAZOLE SOD 40 MG TABEC PO SCH (10:02)
[2022-08-15] MEDS: ASPIRIN 81 MG ENTERIC COATED PO SCH (10:02)
[2022-08-15] MEDS: SODIUM BICARBONATE 650 MG TAB PO SCH (10:02)
[2022-08-15] MEDS: LACTULOSE SYRUP 20 GM/30 ML UDC PO SCH (10:03)
[2022-08-15] MEDS ORDERED: FERROUS SULFAT325 M1 PO (10:24)
[2022-08-15] MEDS ORDERED: PANTOPRAZOLE SO40 MG PO (10:24)
[2022-08-15] MEDS ORDERED: DOCUSATE SODIU100 MG PO (10:24)
[2022-08-15 11:40] VITALS: BP 126/61
== END 2022-08-15 17:27 | disposition home or self-care (01) | DRG 698 ==
LOC: ER 18:05 → ERHOLD 20:14 → MED/SURG3 21:16
PROVIDERS: ADMIT Internal Medicine; ATTEND Internal Medicine
PROC: 30233N1 Transfusion of Nonautologous Red Blood Cells into Peripheral Vein, Percutaneous Approach (ICD-10-PCS; 2022-08-11)
PROC: 0DB68ZX Excision of Stomach, Via Natural or Artificial Opening Endoscopic, Diagnostic (ICD-10-PCS; 2022-08-14)
PROC: 0DBM8ZX Excision of Descending Colon, Via Natural or Artificial Opening Endoscopic, Diagnostic (ICD-10-PCS; principal; 2022-08-14 18:17)
PROC: 0DBL8ZX Excision of Transverse Colon, Via Natural or Artificial Opening Endoscopic, Diagnostic (ICD-10-PCS; 2022-08-14 18:17)
PROC: 0DBP8ZX Excision of Rectum, Via Natural or Artificial Opening Endoscopic, Diagnostic (ICD-10-PCS; 2022-08-14 18:17)
DX: T83.511A Infection and inflammatory reaction due to indwelling urethral catheter, initial encounter (principal); G93.41 Metabolic encephalopathy; I48.20 Chronic atrial fibrillation, unspecified; E87.1 Hypo-osmolality and hyponatremia; E87.20 Acidosis, unspecified; N17.9 Acute kidney failure, unspecified; N39.0 Urinary tract infection, site not specified; Z93.6 Other artificial openings of urinary tract status; I10 Essential (primary) hypertension; E78.5 Hyperlipidemia, unspecified; K20.90 Esophagitis, unspecified without bleeding; K29.70 Gastritis, unspecified, without bleeding; K44.9 Diaphragmatic hernia without obstruction or gangrene; K63.5 Polyp of colon; K57.30 Diverticulosis of large intestine without perforation or abscess without bleeding; K64.8 Other hemorrhoids; B96.4 Proteus (mirabilis) (morganii) as the cause of diseases classified elsewhere; N40.0 Benign prostatic hyperplasia without lower urinary tract symptoms; E87.6 Hypokalemia; I25.10 Atherosclerotic heart disease of native coronary artery without angina pectoris; Z72.0 Tobacco use; E83.42 Hypomagnesemia; I44.1 Atrioventricular block, second degree; F03.90 Unspecified dementia, unspecified severity, without behavioral disturbance, psychotic disturbance, mood disturbance, and anxiety; K62.1 Rectal polyp; D63.8 Anemia in other chronic diseases classified elsewhere; K29.80 Duodenitis without bleeding
CPT/HCPCS: 0223U; 36415; 43239; 45378; 45385; 70450; 71045; 80048; 80053; 81001; 82270; 82570; 82607; 82746; 83540; 83605; 83735; 83880; 84100; 84132; 84156; 84166; 84300; 84466; 84484; 85007; 85025; 85027; 85610; 85730; 86850; 86900; 86920; 87040; 87086; 87186; 87400; 88304; 88305; 88312; 88342; 93005; 96361; 99251; 99284; J0696; J1756; J1980; J2001; J2250; J3010; J3475; J3480; J7030; J7050; P9016; Q0162

== ENCOUNTER 2022-12-16 01:40 | Emergency (ER) | payer MEDICARE ==
[~2022-12-16] VITALS: Ht 172.7 cm; Wt 66.2 kg
[~2022-12-16 01:40] MED LIST changes: +CIPRO250 MG PO; +DOCUSATE SODIU100 MG PO; +FERROUS SULFAT325 M1 PO; +K-DUR10 MEQ PO; +MAGNESIUM OXID400 MG PO; +PANTOPRAZOLE SO40 MG PO
[2022-12-16 02:36] LABS: BASOPHILS % 0.2 % (0.0-1.0); EOSINOPHILS # (AUTO) 0.1 (0.0-0.4); EOSINOPHILS % 0.7 % (0.0-6.0); HEMATOCRIT 39.3 % (38.2-49.6); HEMOGLOBIN 12.4 g/dL (14.0-18.0); LYMPHOCYTES # (AUTO) 1.8 (1.0-3.2); LYMPHOCYTES % 13.1 % (18.0-39.1); MEAN CORPUSCULAR HEMOGLOBIN 29.5 pg (28-32); MEAN CORPUSCULAR HGB CONC 31.6 g/dL (31-35); MEAN CORPUSCULAR VOLUME 93.6 fL (81-99); MONOCYTES # (AUTO) 0.7 (0.2-0.8); MONOCYTES % 5.3 % (4.4-11.3); NEUTROPHILS # (AUTO) 10.9 (2.1-6.9); NEUTROPHILS % 80.3 % (38.7-80.0); PLATELET COUNT 286 x10e3/uL (140-360); RED CELL DISTRIBUTION WIDTH 15.5 % (11.7-14.4)
[2022-12-16 02:38] LABS: CLARITY,URINE CLEAR (CLEAR); COLOR,URINE YELLOW (YELLOW); KETONES,URINE NEGATIVE (NEGATIVE); LEUKOCYTE ESTERASE ,URINE NEGATIVE (NEGATIVE); NITRITE,URINE NEGATIVE (NEGATIVE); PROTEIN,URINE DIPSTICK NEGATIVE (NEGATIVE); URINE UROBILINOGEN 0.2 mg/dL (0.2 - 1)
[2022-12-16 02:42] LABS: BACTERIA,URINE RARE /HPF; EPITHELIAL CELLS,URINE FEW /LPF; RBC,URINE 0-5 /HPF (0-5)
[2022-12-16 02:46] LABS: INR 1.3; PROTHROMBIN TIME 16.3 seconds (11.9-14.5)
[2022-12-16 02:47] LABS: PARTIAL THROMBOPLASTIN TIME 41.4 seconds (23.8-35.5)
[2022-12-16 02:55] LABS: ALBUMIN 4.2 g/dL (3.5-5.0); ANION GAP 15.7 mmol/L (8-16); CALCIUM 9.8 mg/dL (8.4-10.2); CREATININE, SERUM 1.19 mg/dL (0.72-1.25); POTASSIUM 3.7 mmol/L (3.5-5.1)
[2022-12-16] MEDS ORDERED: IOPAMIDOL 370 MG/ML 100 ML INFUS..BTL INJ ONE (03:40)
[2022-12-16] MEDS ORDERED: CEFDINIR300 MG PO (04:17)
== END 2022-12-16 04:37 | disposition home or self-care (01) ==
LOC: ER 01:59
DX: R10.31 Right lower quadrant pain (principal); K40.90 Unilateral inguinal hernia, without obstruction or gangrene, not specified as recurrent; N39.0 Urinary tract infection, site not specified; I10 Essential (primary) hypertension; E78.5 Hyperlipidemia, unspecified
CPT/HCPCS: 36415; 74177; 80053; 81001; 85025; 85610; 85730; 99284; Q9967

== ENCOUNTER → 2023-07-27 | Day surgery (SDC) | payer MEDICARE ==
[2023-07-26 14:10] LABS: BASOPHILS % 0.4 % (0.0-1.0); EOSINOPHILS % 0.3 % (0.0-6.0); HEMATOCRIT 21.4 % (38.2-49.6); LYMPHOCYTES # (AUTO) 1.4 (1.0-3.2); LYMPHOCYTES % 13.6 % (18.0-39.1); MEAN CORPUSCULAR HEMOGLOBIN 23.5 pg (28-32); MEAN CORPUSCULAR HGB CONC 30.8 g/dL (31-35); MEAN CORPUSCULAR VOLUME 76.2 fL (81-99); MONOCYTES # (AUTO) 0.7 (0.2-0.8); NEUTROPHILS # (AUTO) 8.3 (2.1-6.9); NEUTROPHILS % 78.2 % (38.7-80.0); PLATELET COUNT 660 x10e3/uL (140-360); RED BLOOD COUNT 2.81 x10e6/uL (4.3-5.7); RED CELL DISTRIBUTION WIDTH 17.2 % (11.7-14.4); WHITE BLOOD COUNT 10.55 x10e3/uL (4.8-10.8)
[2023-07-26 14:12] LABS: HEMOGLOBIN 6.6 g/dL (14.0-18.0)
[2023-07-26 14:23] LABS: INR 1.4
[2023-07-26 14:27] LABS: ANION GAP 14.4 mmol/L (8-16); CALCIUM 9.5 mg/dL (8.4-10.2); CREATININE, SERUM 0.91 mg/dL (0.72-1.25); POTASSIUM 3.4 mmol/L (3.5-5.1)
[~2023-07-27] VITALS: Ht 172.7 cm; Wt 66.2 kg
[2023-07-27] VITALS (12 sets, daily range): BP systolic 123–159; BP diastolic 49–99; PULSE 60–68; RESP 13–20; O2SAT 92–100
[~2023-07-27] MED LIST changes: +CEFDINIR300 MG PO; +CEFPODOXIME PR200 MG PO; +FENTANYL CITRATE/PF 100MCG/2 ML INJ ONE; +GENTAMICIN SULFATE 40 MG/ML 2 ML VIAL ONE; +HYDROCHLOROTHIA25 MG PO; +IOPAMIDOL 610MG/1ML 300 MG/ML VIAL IV ONE; +LIDOCAINE HCL 2% LOCAL 20 ML VIAL ONE; +METHOCARBAMOL750 MG PO; +MIDAZOLAM HCL 2 MG/2 ML VIAL ONE; +SODIUM CHLORIDE 0.9% 100 ML ONE; +SODIUM CHLORIDE 0.9% 1000ML 2,000 ML ONE; +SODIUM CHLORIDE 0.9% 250ML 250 ML ONE; +SODIUM CHLORIDE 0.9% 500ML 500 ML ONE; +VENOFER100 MG/5 M IV; +Vancomycin IV 1 GM VIAL ONE
== END | disposition home or self-care (01) ==
LOC: CATH LAB 06:57
PROVIDERS: ATTEND Internal Medicine Cardiovascular Disease
DX: I49.5 Sick sinus syndrome (principal); I44.1 Atrioventricular block, second degree; I48.0 Paroxysmal atrial fibrillation; I48.92 Unspecified atrial flutter; Z79.01 Long term (current) use of anticoagulants; I10 Essential (primary) hypertension; I25.10 Atherosclerotic heart disease of native coronary artery without angina pectoris; Z95.5 Presence of coronary angioplasty implant and graft; E78.00 Pure hypercholesterolemia, unspecified; E55.9 Vitamin D deficiency, unspecified; Z87.891 Personal history of nicotine dependence; Z01.812 Encounter for preprocedural laboratory examination; Z79.899 Other long term (current) drug therapy
CPT/HCPCS: 33208; 36415; 71045; 80048; 85025; 85610; 93005; C1769; C1785; C1898 ×2; J0690; J1580; J2001; J2250; J3010; J3370; J7030; J7040; J7050 ×2; Q9967; 99152; 99153

== ENCOUNTER 2023-08-25 21:17 | Inpatient (IN) | payer MEDICARE, OTHER ==
[~2023-08-25] VITALS: Ht 172.7 cm; Wt 66.2 kg
[~2023-08-25 21:17] MED LIST changes: -FENTANYL CITRATE/PF 100MCG/2 ML INJ ONE; -GENTAMICIN SULFATE 40 MG/ML 2 ML VIAL ONE; -IOPAMIDOL 610MG/1ML 300 MG/ML VIAL IV ONE; -LIDOCAINE HCL 2% LOCAL 20 ML VIAL ONE; -MIDAZOLAM HCL 2 MG/2 ML VIAL ONE; -SODIUM CHLORIDE 0.9% 100 ML ONE; -SODIUM CHLORIDE 0.9% 1000ML 2,000 ML ONE; -SODIUM CHLORIDE 0.9% 250ML 250 ML ONE; -SODIUM CHLORIDE 0.9% 500ML 500 ML ONE; -Vancomycin IV 1 GM VIAL ONE
[2023-08-25 22:32] LABS: BASOPHILS % 0.2 % (0.0-1.0); LYMPHOCYTES # (AUTO) 0.5 (1.0-3.2); LYMPHOCYTES % 4.1 % (18.0-39.1); MEAN CORPUSCULAR HEMOGLOBIN 24.3 pg (28-32); MEAN CORPUSCULAR HGB CONC 29.6 g/dL (31-35); MEAN CORPUSCULAR VOLUME 82.1 fL (81-99); MONOCYTES # (AUTO) 0.7 (0.2-0.8); MONOCYTES % 5.4 % (4.4-11.3); NEUTROPHILS # (AUTO) 11.4 (2.1-6.9); NEUTROPHILS % 89.8 % (38.7-80.0); PLATELET COUNT 551 x10e3/uL (140-360); RED BLOOD COUNT 2.63 x10e6/uL (4.3-5.7); RED CELL DISTRIBUTION WIDTH 20.5 % (11.7-14.4); WHITE BLOOD COUNT 12.63 x10e3/uL (4.8-10.8)
[2023-08-25 22:49] LABS: ALBUMIN/GLOBULIN RATIO 0.4 (0.8-2.0); BILIRUBIN,TOTAL 0.8 mg/dL (0.2-1.2); CREATININE, SERUM 0.89 mg/dL (0.72-1.25)
[2023-08-25 22:50] LABS: HEMATOCRIT 21.6 % (38.2-49.6); HEMOGLOBIN 6.4 g/dL (14.0-18.0)
[2023-08-25] MEDS ORDERED: SODIUM CHLORIDE 0.9% 250ML 250 ML IV ONE (23:00)
[2023-08-25 23:23] LABS: TROPONIN I 0.055 ng/mL (0-0.300)
[2023-08-26 00:03] LABS: ANISOCYTOSIS MODERATE; HYPOCHROMASIA MODERATE; RBC MORPHOLOGY COMMENT ABNORMAL
[2023-08-26 00:04] LABS: BURR CELLS MODERATE; ELLIPTOCYTE, RBC MODERATE; OVALOCYTES FEW; PLATELET ESTIMATE ADEQUATE; PLATELET MORPHOLOGY COMMENT NORMAL
[2023-08-26] MEDS ORDERED: KCL 20 MEQ PACKET/ ORAL SOLN PO STA (00:50)
[2023-08-26] MEDS ORDERED: KCL 20 MEQ PACKET/ ORAL SOLN ONE (00:54)
[2023-08-26] MEDS ORDERED: ASPIRIN 81 MG CHEW TAB PO ONE (01:00)
[2023-08-26] MEDS ORDERED: SODIUM CHLORIDE FLUSH 10 ML SYR INJ PRN (01:00)
[2023-08-26] MEDS ORDERED: ONDANSETRON HCL INJ 2MG/ML 2ML 2 MG/ML VIAL IV PRN (01:00)
[2023-08-26] MEDS ORDERED: GUAIFENESIN/DEXTROMETHORPHAN LIQD 5 ML UDC PO PRN (02:30)
[2023-08-26] MEDS ORDERED: DOCUSATE SODIUM 100 MG CAP PO PRN (02:30)
[2023-08-26] MEDS ORDERED: HYDRALAZINE HCL 20 MG/ML VIAL IV PRN (02:30)
[2023-08-26] MEDS ORDERED: MAGNESIUM/ALUMINUM/SIMETHICONE 30 ML UDC PO PRN (02:30)
[2023-08-26] MEDS ORDERED: IRON SUCROSE 100 MG in SODIUM CHLORIDE 0.9% 100 ML IV SCH (03:00)
[2023-08-26 05:43] LABS: CLARITY,URINE CLEAR (CLEAR); COLOR,URINE YELLOW (YELLOW); LEUKOCYTE ESTERASE ,URINE TRACE (NEGATIVE); NITRITE,URINE NEGATIVE (NEGATIVE); PH,URINE 6 (5 - 7); PROTEIN,URINE DIPSTICK 2+ (NEGATIVE)
[2023-08-26 05:44] LABS: BILIRUBIN,URINE SMALL (NEGATIVE); GLUCOSE, URINE NEGATIVE (NEGATIVE); KETONES,URINE TRACE (NEGATIVE); URINE UROBILINOGEN 1 mg/dL (0.2 - 1)
[2023-08-26 06:54] LABS: BACTERIA,URINE MODERATE /HPF; EPITHELIAL CELLS,URINE RARE /LPF; RBC,URINE 21-50 /HPF (0-5)
[2023-08-26 07:14] LABS: BASOPHILS % 0.1 % (0.0-1.0); HEMATOCRIT 25.7 % (38.2-49.6); LYMPHOCYTES # (AUTO) 1.2 (1.0-3.2); LYMPHOCYTES % 10.2 % (18.0-39.1); MEAN CORPUSCULAR HEMOGLOBIN 24.9 pg (28-32); MEAN CORPUSCULAR HGB CONC 31.1 g/dL (31-35); MEAN CORPUSCULAR VOLUME 80.1 fL (81-99); MONOCYTES # (AUTO) 0.8 (0.2-0.8); MONOCYTES % 6.5 % (4.4-11.3); NEUTROPHILS # (AUTO) 9.9 (2.1-6.9); NEUTROPHILS % 82.7 % (38.7-80.0); PLATELET COUNT 662 x10e3/uL (140-360); RED BLOOD COUNT 3.21 x10e6/uL (4.3-5.7); RED CELL DISTRIBUTION WIDTH 19.3 % (11.7-14.4); WHITE BLOOD COUNT 11.93 x10e3/uL (4.8-10.8)
[2023-08-26 07:24] LABS: % IRON SATURATION 28 % (15-50); IRON 50 ug/dL (65-175); TOTAL IRON BINDING CAPACITY 181 ug/dL (261-478); TRANSFERRIN 129 mg/dL (174-364)
[2023-08-26 07:26] LABS: TROPONIN I 0.059 ng/mL (0-0.300)
[2023-08-26 08:22] LABS: ALBUMIN 2.1 g/dL (3.5-5.0); ALBUMIN/GLOBULIN RATIO 0.4 (0.8-2.0); ANION GAP 16.5 mmol/L (8-16); BILIRUBIN,TOTAL 1.7 mg/dL (0.2-1.2); CALCIUM 9.5 mg/dL (8.4-10.2); CREATININE, SERUM 0.85 mg/dL (0.72-1.25); POTASSIUM 3.5 mmol/L (3.5-5.1); TOTAL PROTEIN 7.5 g/dL (6.5-8.1)
[2023-08-26] MEDS ORDERED: KCL 20 MEQ PACKET/ ORAL SOLN PO ONE (09:00)
[2023-08-26] MEDS: FOLIC ACID 1 MG TAB PO SCH (09:00)
[2023-08-26] MEDS: HYDROCHLOROTHIAZIDE 25 MG TAB PO SCH (09:00)
[2023-08-26] MEDS: MULTIVITAMINS/MINERALS TAB PO SCH (09:00)
[2023-08-26] MEDS: APIXABAN 5 MG TABLET PO SCH ×2 (09:00→17:00)
[2023-08-26] MEDS: MAGNESIUM OXIDE 400 MG TAB PO SCH ×2 (09:00→17:00)
[2023-08-26] MEDS: LOSARTAN POTASSIUM 25 MG TAB PO SCH (09:00)
[2023-08-26] MEDS: ATORVASTATIN 10 MG TAB PO SCH (09:00)
[2023-08-26] MEDS: IRON SUCROSE 100 MG in SODIUM CHLORIDE 0.9% 100 ML IV SCH (10:06)
[2023-08-26 16:06] LABS: TROPONIN I 0.098 ng/mL (0-0.300)
[2023-08-26 16:18] VITALS: BP 128/52; PULSE 78; RESP 15; TEMP 98.7; O2SAT 97
[2023-08-26 16:21] VITALS: BP 128/52; PULSE 78; RESP 15; TEMP 98.7; O2SAT 97
[2023-08-26 16:23] VITALS: BP 128/52; PULSE 78; RESP 15; TEMP 98.7; O2SAT 97
[2023-08-26 16:41] VITALS: BP 128/52; PULSE 78; RESP 15; TEMP 98.7; O2SAT 97
[2023-08-26 20:18] VITALS: BP 125/60; PULSE 80; RESP 18; TEMP 98.7; O2SAT 97
[2023-08-26 20:55] VITALS: BP 125/60; PULSE 80; RESP 18; TEMP 98.7; O2SAT 97
[2023-08-27] VITALS (7 sets, daily range): BP systolic 100–140; BP diastolic 49–77; PULSE 61–76; RESP 14–18; TEMP 97.1–98.7; O2SAT 97–100
[2023-08-27 06:29] LABS: BASOPHILS % 0.2 % (0.0-1.0); LYMPHOCYTES % 11.3 % (18.0-39.1); MEAN CORPUSCULAR HEMOGLOBIN 24.5 pg (28-32); MEAN CORPUSCULAR HGB CONC 30.6 g/dL (31-35); MEAN CORPUSCULAR VOLUME 80.2 fL (81-99); MONOCYTES # (AUTO) 0.8 (0.2-0.8); MONOCYTES % 8.6 % (4.4-11.3); NEUTROPHILS # (AUTO) 7.3 (2.1-6.9); NEUTROPHILS % 79.4 % (38.7-80.0); PLATELET COUNT 530 x10e3/uL (140-360); RED BLOOD COUNT 2.57 x10e6/uL (4.3-5.7); RED CELL DISTRIBUTION WIDTH 19.4 % (11.7-14.4); WHITE BLOOD COUNT 9.23 x10e3/uL (4.8-10.8)
[2023-08-27 06:33] LABS: HEMATOCRIT 20.6 % (38.2-49.6); HEMOGLOBIN 6.3 g/dL (14.0-18.0)
[2023-08-27 06:34] LABS: ALBUMIN 1.7 g/dL (3.5-5.0); ALBUMIN/GLOBULIN RATIO 0.4 (0.8-2.0); ANION GAP 11.1 mmol/L (8-16); BILIRUBIN,TOTAL 0.8 mg/dL (0.2-1.2); CALCIUM 8.6 mg/dL (8.4-10.2); CREATININE, SERUM 0.63 mg/dL (0.72-1.25); POTASSIUM 3.1 mmol/L (3.5-5.1); TOTAL PROTEIN 5.8 g/dL (6.5-8.1)
[2023-08-27 07:08] LABS: TROPONIN I 0.066 ng/mL (0-0.300)
[2023-08-27] MEDS ORDERED: SODIUM CHLORIDE 0.9% 0 ML ONE (08:58)
[2023-08-27] MEDS: LOSARTAN POTASSIUM 25 MG TAB PO SCH (09:00)
[2023-08-27] MEDS: HYDROCHLOROTHIAZIDE 25 MG TAB PO SCH (09:00)
[2023-08-27] MEDS: IRON SUCROSE 100 MG in SODIUM CHLORIDE 0.9% 100 ML IV SCH (09:04)
[2023-08-27] MEDS: FOLIC ACID 1 MG TAB PO SCH (09:04)
[2023-08-27] MEDS: ATORVASTATIN 10 MG TAB PO SCH (09:04)
[2023-08-27] MEDS: MAGNESIUM OXIDE 400 MG TAB PO SCH ×2 (09:04→16:56)
[2023-08-27] MEDS: APIXABAN 5 MG TABLET PO SCH ×2 (09:05→16:56)
[2023-08-27] MEDS: MULTIVITAMINS/MINERALS TAB PO SCH (09:05)
[2023-08-27] MEDS ORDERED: ONDANSETRON HCL 4 MG ORAL DISINTEGRATING TAB PO PRN (10:15)
[2023-08-27] MEDS ORDERED: POTASSIUM CHLORIDE 20MEQ/100ML 100 ML IV ONE (11:30)
[2023-08-27] MEDS ORDERED: SODIUM CHLORIDE 0.9% 250ML 250 ML IV ONE (11:30)
[2023-08-27] MEDS ORDERED: SODIUM CHLORIDE 0.9% 500ML 500 ML ONE (11:36)
[2023-08-27] MEDS: MELATONIN 3 MG TAB PO PRN (21:19)
[2023-08-27] MEDS: ACETAMINOPHEN 325 MG TAB PO PRN (21:19)
[2023-08-28] VITALS (8 sets, daily range): BP systolic 101–153; BP diastolic 62–92; PULSE 62–81; RESP 17–18; TEMP 97.1–98.8; O2SAT 97–100
[2023-08-28] MEDS: MULTIVITAMINS/MINERALS TAB PO SCH (09:46)
[2023-08-28] MEDS: HYDROCHLOROTHIAZIDE 25 MG TAB PO SCH (09:46)
[2023-08-28] MEDS: ATORVASTATIN 10 MG TAB PO SCH (09:46)
[2023-08-28] MEDS: APIXABAN 5 MG TABLET PO SCH (09:46)
[2023-08-28] MEDS: FOLIC ACID 1 MG TAB PO SCH (09:47)
[2023-08-28] MEDS: LOSARTAN POTASSIUM 25 MG TAB PO SCH (09:47)
[2023-08-28] MEDS: MAGNESIUM OXIDE 400 MG TAB PO SCH ×2 (09:47→17:40)
[2023-08-28 10:58] LABS: BASOPHILS % 0.2 % (0.0-1.0); EOSINOPHILS % 0.1 % (0.0-6.0); HEMATOCRIT 26.1 % (38.2-49.6); HEMOGLOBIN 8.3 g/dL (14.0-18.0); LYMPHOCYTES # (AUTO) 0.8 (1.0-3.2); LYMPHOCYTES % 8.7 % (18.0-39.1); MEAN CORPUSCULAR HEMOGLOBIN 25.8 pg (28-32); MEAN CORPUSCULAR HGB CONC 31.8 g/dL (31-35); MEAN CORPUSCULAR VOLUME 81.1 fL (81-99); MONOCYTES # (AUTO) 0.7 (0.2-0.8); MONOCYTES % 6.9 % (4.4-11.3); NEUTROPHILS % 83.7 % (38.7-80.0); PLATELET COUNT 416 x10e3/uL (140-360); RED BLOOD COUNT 3.22 x10e6/uL (4.3-5.7); RED CELL DISTRIBUTION WIDTH 18.8 % (11.7-14.4); WHITE BLOOD COUNT 9.58 x10e3/uL (4.8-10.8)
[2023-08-28 11:18] LABS: CREATININE, SERUM 0.67 mg/dL (0.72-1.25)
[2023-08-28] MEDS: IRON SUCROSE 100 MG in SODIUM CHLORIDE 0.9% 100 ML IV SCH (11:22)
[2023-08-28] MEDS ORDERED: POTASSIUM CHLORIDE 10MEQ EA PO ONE (13:45)
[2023-08-29] VITALS (9 sets, daily range): BP systolic 114–161; BP diastolic 60–90; PULSE 55–105; RESP 16–18; TEMP 97.1–98.5; O2SAT 92–100
[2023-08-29 07:50] LABS: FOLATE 11.1 ng/mL (7.0-15.4)
[2023-08-29] MEDS: IRON SUCROSE 100 MG in SODIUM CHLORIDE 0.9% 100 ML IV SCH (09:23)
[2023-08-29] MEDS: FOLIC ACID 1 MG TAB PO SCH (09:28)
[2023-08-29] MEDS: MULTIVITAMINS/MINERALS TAB PO SCH (09:28)
[2023-08-29] MEDS: MAGNESIUM OXIDE 400 MG TAB PO SCH ×2 (09:29→17:46)
[2023-08-29] MEDS: ATORVASTATIN 10 MG TAB PO SCH (09:29)
[2023-08-29] MEDS: HYDROCHLOROTHIAZIDE 25 MG TAB PO SCH (09:29)
[2023-08-29] MEDS: LOSARTAN POTASSIUM 25 MG TAB PO SCH (10:22)
[2023-08-30] VITALS (8 sets, daily range): BP systolic 120–159; BP diastolic 51–73; PULSE 66–92; RESP 16–18; TEMP 97.1–98.6; O2SAT 91–97
[2023-08-30] MEDS: LOSARTAN POTASSIUM 25 MG TAB PO SCH (08:56)
[2023-08-30] MEDS: ATORVASTATIN 10 MG TAB PO SCH (09:00)
[2023-08-30] MEDS: MAGNESIUM OXIDE 400 MG TAB PO SCH ×2 (09:00→17:10)
[2023-08-30] MEDS: FOLIC ACID 1 MG TAB PO SCH (09:00)
[2023-08-30] MEDS: MULTIVITAMINS/MINERALS TAB PO SCH (09:00)
[2023-08-30] MEDS: HYDROCHLOROTHIAZIDE 25 MG TAB PO SCH (09:04)
[2023-08-30] MEDS: IRON SUCROSE 100 MG in SODIUM CHLORIDE 0.9% 100 ML IV SCH (10:26)
[2023-08-30] MEDS ORDERED: PROPOFOL IV EMULSION 10 MG/ML 20 ML VIAL ONE (11:49)
[2023-08-31] MEDS: MELATONIN 3 MG TAB PO PRN (00:35)
[2023-08-31 03:00] VITALS: BP 160/67; PULSE 81; RESP 16; TEMP 97.6; O2SAT 92
[2023-08-31 08:12] VITALS: BP 135/49; PULSE 96; RESP 16; TEMP 98.4; O2SAT 98
[2023-08-31] MEDS: FOLIC ACID 1 MG TAB PO SCH (09:49)
[2023-08-31] MEDS: MAGNESIUM OXIDE 400 MG TAB PO SCH ×2 (09:49→17:50)
[2023-08-31] MEDS: MULTIVITAMINS/MINERALS TAB PO SCH (09:49)
[2023-08-31] MEDS: HYDROCHLOROTHIAZIDE 25 MG TAB PO SCH (09:49)
[2023-08-31] MEDS: ATORVASTATIN 10 MG TAB PO SCH (09:49)
[2023-08-31] MEDS: LOSARTAN POTASSIUM 25 MG TAB PO SCH (09:50)
[2023-08-31 12:12] VITALS: BP 140/55; PULSE 58; RESP 16; TEMP 98.2; O2SAT 100
[2023-08-31] MEDS ORDERED: DEXTROSE 50% SYRINGE 50 ML IV ONE (12:45)
[2023-08-31 15:49] VITALS: BP 156/94; PULSE 73; RESP 16; TEMP 97.8; O2SAT 94
[2023-08-31 18:54] LABS: BASOPHILS % 0.1 % (0.0-1.0); EOSINOPHILS % 0.1 % (0.0-6.0); HEMATOCRIT 28.5 % (38.2-49.6); HEMOGLOBIN 8.8 g/dL (14.0-18.0); LYMPHOCYTES # (AUTO) 0.8 (1.0-3.2); LYMPHOCYTES % 7.5 % (18.0-39.1); MEAN CORPUSCULAR HEMOGLOBIN 25.8 pg (28-32); MEAN CORPUSCULAR HGB CONC 30.9 g/dL (31-35); MEAN CORPUSCULAR VOLUME 83.6 fL (81-99); MONOCYTES # (AUTO) 0.8 (0.2-0.8); MONOCYTES % 7.6 % (4.4-11.3); NEUTROPHILS % 84.4 % (38.7-80.0); PLATELET COUNT 454 x10e3/uL (140-360); RED BLOOD COUNT 3.41 x10e6/uL (4.3-5.7); RED CELL DISTRIBUTION WIDTH 19.5 % (11.7-14.4); WHITE BLOOD COUNT 10.69 x10e3/uL (4.8-10.8)
[2023-08-31 19:19] LABS: ANION GAP 12.9 mmol/L (8-16)
[2023-08-31 19:20] LABS: ALBUMIN 1.8 g/dL (3.5-5.0); ALBUMIN/GLOBULIN RATIO 0.4 (0.8-2.0); BILIRUBIN,TOTAL 0.9 mg/dL (0.2-1.2); CALCIUM 9.3 mg/dL (8.4-10.2); CREATININE, SERUM 0.62 mg/dL (0.72-1.25); TOTAL PROTEIN 6.7 g/dL (6.5-8.1)
[2023-08-31 19:23] LABS: POTASSIUM 2.9 mmol/L (3.5-5.1)
[2023-08-31 20:00] VITALS: BP 132/51; PULSE 89; RESP 16; RESP 18; TEMP 98; O2SAT 97
[2023-08-31] MEDS ORDERED: LACTULOSE SYRUP 20 GM/30 ML UDC PO PRN (20:00)
[2023-08-31] MEDS ORDERED: BISACODYL 10 MG SUPP PR ONE (20:00)
[2023-08-31] MEDS: POTASSIUM CHLORIDE 10MEQ EA PO SCH ×2 (22:51→23:56)
[2023-08-31] MEDS: LACTULOSE SYRUP 20 GM/30 ML UDC PO SCH (22:52)
[2023-08-31] MEDS ORDERED: CYANOCOBALAMIN INJ 1,000 MCG/ML VIAL IM ONE (23:00)
[2023-09-01] VITALS (8 sets, daily range): BP systolic 112–164; BP diastolic 46–69; PULSE 63–88; RESP 16–18; TEMP 98.1–98.6; O2SAT 92–97
[2023-09-01] MEDS ORDERED: SODIUM CHLORIDE 0.9% 1000ML 1,000 ML ONE (00:07)
[2023-09-01 00:24] LABS: CLARITY,URINE CLEAR (CLEAR); COLOR,URINE YELLOW (YELLOW); LEUKOCYTE ESTERASE ,URINE NEGATIVE (NEGATIVE); NITRITE,URINE NEGATIVE (NEGATIVE); PH,URINE 7 (5 - 7); PROTEIN,URINE DIPSTICK 1+ (NEGATIVE)
[2023-09-01 00:25] LABS: BILIRUBIN,URINE NEGATIVE (NEGATIVE); GLUCOSE, URINE NEGATIVE (NEGATIVE); KETONES,URINE NEGATIVE (NEGATIVE); URINE UROBILINOGEN 1 mg/dL (0.2 - 1)
[2023-09-01 01:07] LABS: BACTERIA,URINE MODERATE /HPF; EPITHELIAL CELLS,URINE RARE /LPF; WBC,URINE (MAN) 0-5 /HPF (0-5)
[2023-09-01] MEDS ORDERED: POTASSIUM CHLORIDE 20MEQ/100ML 100 ML IV ONE ×2 (04:00)
[2023-09-01] MEDS: FOLIC ACID 1 MG TAB PO SCH (09:41)
[2023-09-01] MEDS: MULTIVITAMINS/MINERALS TAB PO SCH (09:41)
[2023-09-01] MEDS: HYDROCHLOROTHIAZIDE 25 MG TAB PO SCH (09:41)
[2023-09-01] MEDS: MAGNESIUM OXIDE 400 MG TAB PO SCH ×2 (09:41→17:18)
[2023-09-01] MEDS: LOSARTAN POTASSIUM 25 MG TAB PO SCH (09:41)
[2023-09-01] MEDS: ATORVASTATIN 10 MG TAB PO SCH (09:41)
[2023-09-01] MEDS: LACTULOSE SYRUP 20 GM/30 ML UDC PO SCH ×3 (09:42→21:04)
[2023-09-01] MEDS: CYANOCOBALAMIN INJ 1,000 MCG/ML VIAL IM SCH (21:05)
[2023-09-02] VITALS (8 sets, daily range): BP systolic 102–151; BP diastolic 59–90; PULSE 61–96; RESP 16–18; TEMP 97.9–98.7; O2SAT 93–99
[2023-09-02 07:08] LABS: ANION GAP 11.8 mmol/L (8-16); CALCIUM 8.8 mg/dL (8.4-10.2); CREATININE, SERUM 0.64 mg/dL (0.72-1.25)
[2023-09-02 07:15] LABS: POTASSIUM 2.8 mmol/L (3.5-5.1)
[2023-09-02] MEDS ORDERED: POTASSIUM CHLORIDE 20 MEQ TAB CR PO STA (07:32)
[2023-09-02] MEDS ORDERED: SODIUM CHLORIDE 0.9% 250ML 250 ML ONE (07:50)
[2023-09-02] MEDS: LACTULOSE SYRUP 20 GM/30 ML UDC PO SCH ×3 (08:16→21:29)
[2023-09-02] MEDS: MULTIVITAMINS/MINERALS TAB PO SCH (08:16)
[2023-09-02] MEDS: FOLIC ACID 1 MG TAB PO SCH (08:17)
[2023-09-02] MEDS: MAGNESIUM OXIDE 400 MG TAB PO SCH ×2 (08:17→16:25)
[2023-09-02] MEDS: HYDROCHLOROTHIAZIDE 25 MG TAB PO SCH (08:17)
[2023-09-02] MEDS: ATORVASTATIN 10 MG TAB PO SCH (08:18)
[2023-09-02] MEDS: LOSARTAN POTASSIUM 25 MG TAB PO SCH (08:18)
[2023-09-02] MEDS ORDERED: POTASSIUM CHLORIDE 20 MEQ TAB CR PO ONE ×2 (10:00→12:00)
[2023-09-02] MEDS: CYANOCOBALAMIN INJ 1,000 MCG/ML VIAL IM SCH (21:29)
[2023-09-03] VITALS: BP 95/79; PULSE 91; RESP 18; TEMP 97.7; O2SAT 98
[2023-09-03 04:00] VITALS: BP 148/59; PULSE 71; RESP 18; TEMP 97.3; O2SAT 96
[2023-09-03 05:41] LABS: BASOPHILS % 0.1 % (0.0-1.0); HEMATOCRIT 26.3 % (38.2-49.6); LYMPHOCYTES % 6.4 % (18.0-39.1); MEAN CORPUSCULAR HEMOGLOBIN 25.9 pg (28-32); MEAN CORPUSCULAR HGB CONC 30.4 g/dL (31-35); MEAN CORPUSCULAR VOLUME 85.1 fL (81-99); MONOCYTES # (AUTO) 0.9 (0.2-0.8); MONOCYTES % 6.1 % (4.4-11.3); NEUTROPHILS % 86.9 % (38.7-80.0); PLATELET COUNT 528 x10e3/uL (140-360); RED BLOOD COUNT 3.09 x10e6/uL (4.3-5.7); RED CELL DISTRIBUTION WIDTH 19.5 % (11.7-14.4); WHITE BLOOD COUNT 14.99 x10e3/uL (4.8-10.8)
[2023-09-03 06:06] LABS: ALBUMIN 1.9 g/dL (3.5-5.0); ALBUMIN/GLOBULIN RATIO 0.4 (0.8-2.0); ANION GAP 12.1 mmol/L (8-16); CALCIUM 9.2 mg/dL (8.4-10.2); CREATININE, SERUM 0.65 mg/dL (0.72-1.25); POTASSIUM 4.1 mmol/L (3.5-5.1); TOTAL PROTEIN 6.6 g/dL (6.5-8.1)
[2023-09-03] MEDS: LACTULOSE SYRUP 20 GM/30 ML UDC PO SCH ×3 (09:00→21:04)
[2023-09-03] MEDS: LOSARTAN POTASSIUM 25 MG TAB PO SCH ×2 (09:00→12:48)
[2023-09-03] MEDS: HYDROCHLOROTHIAZIDE 25 MG TAB PO SCH ×2 (09:00→12:48)
[2023-09-03] MEDS: FOLIC ACID 1 MG TAB PO SCH ×2 (09:00→12:48)
[2023-09-03] MEDS: MULTIVITAMINS/MINERALS TAB PO SCH ×2 (09:00→12:48)
[2023-09-03] MEDS: ATORVASTATIN 10 MG TAB PO SCH ×2 (09:00→12:48)
[2023-09-03] MEDS: MAGNESIUM OXIDE 400 MG TAB PO SCH ×3 (09:00→17:06)
[2023-09-03 12:00] VITALS: BP 169/90; PULSE 74; RESP 16; TEMP 97.9; O2SAT 96
[2023-09-03 20:00] VITALS: BP 157/65; PULSE 60; PULSE 64; RESP 18; TEMP 97.8; O2SAT 96
[2023-09-03 21:00] VITALS: BP 157/65; PULSE 60; RESP 18; TEMP 97.8; O2SAT 96
[2023-09-03] MEDS: CYANOCOBALAMIN INJ 1,000 MCG/ML VIAL IM SCH (21:04)
[2023-09-04] VITALS (9 sets, daily range): BP systolic 106–185; BP diastolic 45–90; PULSE 67–90; RESP 16–18; TEMP 97.6–98.7; O2SAT 96–100
[2023-09-04] MEDS: FOLIC ACID 1 MG TAB PO SCH (08:27)
[2023-09-04] MEDS: ATORVASTATIN 10 MG TAB PO SCH (08:27)
[2023-09-04] MEDS: MULTIVITAMINS/MINERALS TAB PO SCH (08:27)
[2023-09-04] MEDS: LOSARTAN POTASSIUM 25 MG TAB PO SCH (08:27)
[2023-09-04] MEDS: MAGNESIUM OXIDE 400 MG TAB PO SCH ×2 (08:27→17:04)
[2023-09-04] MEDS: LACTULOSE SYRUP 20 GM/30 ML UDC PO SCH ×3 (08:28→20:20)
[2023-09-04] MEDS: HYDROCHLOROTHIAZIDE 25 MG TAB PO SCH (08:28)
[2023-09-04] MEDS: CYANOCOBALAMIN INJ 1,000 MCG/ML VIAL IM SCH (20:20)
[2023-09-05] VITALS (7 sets, daily range): BP systolic 111–155; BP diastolic 63–92; PULSE 50–95; RESP 17–21; TEMP 97.8–98.6; O2SAT 95–100
[2023-09-05 05:36] LABS: ALBUMIN 1.7 g/dL (3.5-5.0); BILIRUBIN,DIRECT 0.4 mg/dL (0.0-0.5); BILIRUBIN,TOTAL 0.7 mg/dL (0.2-1.2); TOTAL PROTEIN 6.1 g/dL (6.5-8.1)
[2023-09-05] MEDS: ATORVASTATIN 10 MG TAB PO SCH (08:39)
[2023-09-05] MEDS: MAGNESIUM OXIDE 400 MG TAB PO SCH ×2 (08:39→17:30)
[2023-09-05] MEDS: MULTIVITAMINS/MINERALS TAB PO SCH (08:39)
[2023-09-05] MEDS: FOLIC ACID 1 MG TAB PO SCH (08:39)
[2023-09-05] MEDS: LOSARTAN POTASSIUM 25 MG TAB PO SCH (08:39)
[2023-09-05] MEDS: HYDROCHLOROTHIAZIDE 25 MG TAB PO SCH (08:40)
[2023-09-05] MEDS: LACTULOSE SYRUP 20 GM/30 ML UDC PO SCH ×3 (08:41→21:12)
[2023-09-05] MEDS: IRON-VITAMIN-MINERAL CAPSULE PO SCH (17:29)
[2023-09-05] MEDS: ACETAMINOPHEN 325 MG TAB PO PRN (18:38)
[2023-09-05] MEDS: CYANOCOBALAMIN INJ 1,000 MCG/ML VIAL IM SCH (21:12)
[2023-09-06] VITALS (8 sets, daily range): BP systolic 135–149; BP diastolic 56–96; PULSE 61–69; RESP 16–20; TEMP 97.3–98.3; O2SAT 98–100
[2023-09-06] MEDS: IRON-VITAMIN-MINERAL CAPSULE PO SCH (08:24)
[2023-09-06] MEDS: LACTULOSE SYRUP 20 GM/30 ML UDC PO SCH ×3 (08:24→20:28)
[2023-09-06] MEDS: ATORVASTATIN 10 MG TAB PO SCH (08:24)
[2023-09-06] MEDS: LOSARTAN POTASSIUM 25 MG TAB PO SCH (08:25)
[2023-09-06] MEDS: FOLIC ACID 1 MG TAB PO SCH (08:25)
[2023-09-06] MEDS: HYDROCHLOROTHIAZIDE 25 MG TAB PO SCH (08:25)
[2023-09-06] MEDS: MAGNESIUM OXIDE 400 MG TAB PO SCH ×2 (08:25→16:45)
[2023-09-06] MEDS: DEXTROSE 50% SYRINGE 50 ML IV PRN (15:10)
[2023-09-06] MEDS: ACETAMINOPHEN 325 MG TAB PO PRN (16:45)
[2023-09-06] MEDS: CYANOCOBALAMIN INJ 1,000 MCG/ML VIAL IM SCH (20:28)
[2023-09-07] VITALS: BP 134/65; PULSE 59; RESP 20; TEMP 97.4
[2023-09-07 08:43] VITALS: BP 102/69; PULSE 58; RESP 18; TEMP 97.7; O2SAT 96
[2023-09-07] MEDS: IRON-VITAMIN-MINERAL CAPSULE PO SCH (08:48)
[2023-09-07] MEDS: HYDROCHLOROTHIAZIDE 25 MG TAB PO SCH (08:49)
[2023-09-07] MEDS: MAGNESIUM OXIDE 400 MG TAB PO SCH ×2 (08:49→17:28)
[2023-09-07] MEDS: FOLIC ACID 1 MG TAB PO SCH (08:49)
[2023-09-07] MEDS: LACTULOSE SYRUP 20 GM/30 ML UDC PO SCH ×3 (08:49→19:57)
[2023-09-07] MEDS: LOSARTAN POTASSIUM 25 MG TAB PO SCH (08:49)
[2023-09-07] MEDS: ATORVASTATIN 10 MG TAB PO SCH (08:49)
[2023-09-07 08:55] VITALS: BP 102/69; PULSE 58; RESP 18; TEMP 97.7; O2SAT 96
[2023-09-07 11:37] LABS: BASOPHILS % 0.1 % (0.0-1.0); EOSINOPHILS % 0.1 % (0.0-6.0); HEMATOCRIT 28.7 % (38.2-49.6); HEMOGLOBIN 8.7 g/dL (14.0-18.0); LYMPHOCYTES # (AUTO) 1.1 (1.0-3.2); LYMPHOCYTES % 10.9 % (18.0-39.1); MEAN CORPUSCULAR HEMOGLOBIN 25.9 pg (28-32); MEAN CORPUSCULAR HGB CONC 30.3 g/dL (31-35); MEAN CORPUSCULAR VOLUME 85.4 fL (81-99); MONOCYTES # (AUTO) 0.7 (0.2-0.8); MONOCYTES % 6.9 % (4.4-11.3); NEUTROPHILS # (AUTO) 8.1 (2.1-6.9); NEUTROPHILS % 81.6 % (38.7-80.0); PLATELET COUNT 441 x10e3/uL (140-360); RED BLOOD COUNT 3.36 x10e6/uL (4.3-5.7); RED CELL DISTRIBUTION WIDTH 19.3 % (11.7-14.4); WHITE BLOOD COUNT 9.92 x10e3/uL (4.8-10.8)
[2023-09-07 12:03] LABS: ALBUMIN 1.8 g/dL (3.5-5.0); ALBUMIN/GLOBULIN RATIO 0.4 (0.8-2.0); ANION GAP 11.8 mmol/L (8-16); BILIRUBIN,TOTAL 0.9 mg/dL (0.2-1.2); CREATININE, SERUM 0.6 mg/dL (0.72-1.25); TOTAL PROTEIN 6.6 g/dL (6.5-8.1)
[2023-09-07 12:21] LABS: POTASSIUM 2.8 mmol/L (3.5-5.1)
[2023-09-07] MEDS: POTASSIUM CHLORIDE 20 MEQ TAB CR PO SCH ×3 (12:54→17:28)
[2023-09-07 16:07] VITALS: BP 130/44; PULSE 66; RESP 16; TEMP 97.7; O2SAT 100
[2023-09-07 20:17] VITALS: BP 154/57; PULSE 75; RESP 20; TEMP 97.8; O2SAT 100
[2023-09-07 20:32] VITALS: BP 154/57; PULSE 75; RESP 20; TEMP 97.8; O2SAT 100
[2023-09-08] VITALS (7 sets, daily range): BP systolic 114–163; BP diastolic 60–90; PULSE 79–94; RESP 19–21; TEMP 97.5–98; O2SAT 96–100
[2023-09-08] MEDS: DEXTROSE 50% SYRINGE 50 ML IV PRN (07:22)
[2023-09-08] MEDS: LACTULOSE SYRUP 20 GM/30 ML UDC PO SCH ×3 (09:37→21:03)
[2023-09-08] MEDS: MAGNESIUM OXIDE 400 MG TAB PO SCH ×2 (09:38→17:00)
[2023-09-08] MEDS: IRON-VITAMIN-MINERAL CAPSULE PO SCH (09:38)
[2023-09-08] MEDS: HYDROCHLOROTHIAZIDE 25 MG TAB PO SCH (09:38)
[2023-09-08] MEDS: FOLIC ACID 1 MG TAB PO SCH (09:39)
[2023-09-08] MEDS: LOSARTAN POTASSIUM 25 MG TAB PO SCH (09:39)
[2023-09-08] MEDS: ATORVASTATIN 10 MG TAB PO SCH (09:39)
[2023-09-08] MEDS: MELATONIN 3 MG TAB PO PRN (23:30)
[2023-09-09] VITALS: BP 143/126; PULSE 95; RESP 17; TEMP 97.5; O2SAT 100
[2023-09-09] MEDS ORDERED: QUETIAPINE FUMARATE 25 MG TAB PO PRN (01:15)
[2023-09-09 04:00] VITALS: BP 152/71; PULSE 131; RESP 18; TEMP 97.5; O2SAT 100
[2023-09-09 07:40] LABS: CALCIUM 9.2 mg/dL (8.4-10.2); CREATININE, SERUM 0.62 mg/dL (0.72-1.25)
[2023-09-09 08:27] VITALS: BP 154/60; PULSE 88; RESP 20; TEMP 97.7; O2SAT 92
[2023-09-09 08:41] VITALS: BP 154/60; PULSE 88; RESP 20; TEMP 97.7; O2SAT 92
[2023-09-09] MEDS: MAGNESIUM OXIDE 400 MG TAB PO SCH ×2 (10:53→16:18)
[2023-09-09] MEDS: LACTULOSE SYRUP 20 GM/30 ML UDC PO SCH ×2 (10:53→15:00)
[2023-09-09] MEDS: IRON-VITAMIN-MINERAL CAPSULE PO SCH (10:53)
[2023-09-09] MEDS: ATORVASTATIN 10 MG TAB PO SCH (10:53)
[2023-09-09] MEDS: FOLIC ACID 1 MG TAB PO SCH (10:54)
[2023-09-09] MEDS: LOSARTAN POTASSIUM 25 MG TAB PO SCH (10:54)
[2023-09-09] MEDS: HYDROCHLOROTHIAZIDE 25 MG TAB PO SCH (10:59)
[2023-09-09 12:17] VITALS: BP 136/58; PULSE 64; RESP 20; TEMP 98; O2SAT 93
[2023-09-09] MEDS ORDERED: ONDANSETRON ODT4 MG PO (12:34)
[2023-09-09] MEDS ORDERED: Magnesium/Alum/Simethicone PO (12:34)
[2023-09-09] MEDS ORDERED: PROTONIX40 MG/ML PO (12:34)
[2023-09-09] MEDS ORDERED: SEROQUEL25 MG PO (12:34)
[2023-09-09] MEDS ORDERED: ACETAMINOPHEN325 M1 PO (12:34)
[2023-09-09] MEDS ORDERED: MELATONIN3 MG PO (12:34)
[2023-09-09] MEDS ORDERED: Docusate Sodium PO (12:34)
[2023-09-09 16:18] VITALS: BP 164/70; PULSE 64; RESP 20; TEMP 98; O2SAT 95
[2023-09-09] MEDS ORDERED: PANTOPRAZOLE SOD 40 MG TABEC PO SCH (16:30)
== END 2023-09-09 17:07 | DRG 812 ==
LOC: ER 22:31 → ERHOLD 08-26 00:58 → MED/SURG3 08-26 16:16 → OBSVTOIN 08-27 11:08
PROVIDERS: ADMIT Internal Medicine; ATTEND Internal Medicine
PROC: 30233N1 Transfusion of Nonautologous Red Blood Cells into Peripheral Vein, Percutaneous Approach (ICD-10-PCS; principal; 2023-08-26)
PROC: 0DB48ZX Excision of Esophagogastric Junction, Via Natural or Artificial Opening Endoscopic, Diagnostic (ICD-10-PCS; 2023-08-30)
PROC: 0DB68ZX Excision of Stomach, Via Natural or Artificial Opening Endoscopic, Diagnostic (ICD-10-PCS; 2023-08-30)
DX: D50.9 Iron deficiency anemia, unspecified (principal); E87.1 Hypo-osmolality and hyponatremia; F03.911 Unspecified dementia, unspecified severity, with agitation; G93.49 Other encephalopathy; Z79.01 Long term (current) use of anticoagulants; Z95.0 Presence of cardiac pacemaker; E87.6 Hypokalemia; E88.09 Other disorders of plasma-protein metabolism, not elsewhere classified; K20.90 Esophagitis, unspecified without bleeding; K44.9 Diaphragmatic hernia without obstruction or gangrene; K29.50 Unspecified chronic gastritis without bleeding; I10 Essential (primary) hypertension; E78.5 Hyperlipidemia, unspecified; E11.9 Type 2 diabetes mellitus without complications; I25.10 Atherosclerotic heart disease of native coronary artery without angina pectoris; N40.0 Benign prostatic hyperplasia without lower urinary tract symptoms; R74.01 Elevation of levels of liver transaminase levels; I48.0 Paroxysmal atrial fibrillation; Z90.49 Acquired absence of other specified parts of digestive tract; Z87.891 Personal history of nicotine dependence; Z95.5 Presence of coronary angioplasty implant and graft; Z11.52 Encounter for screening for COVID-19
CPT/HCPCS: 36415; 43239; 70450; 71045; 80048; 80053; 80076; 81001; 82140; 82550; 82607; 82746; 82948; 83036; 83540; 83880; 84466; 84484; 85025; 86850; 86900; 86920; 88305; 88342; 93971; 99252; 99284; G0378; J0696; J1756; J3420; J3480; J7030; J7040; J7050; J7799; P9016; U0002